=== PATIENT | female | born 1940 | race Caucasian/White ===

== ENCOUNTER 2022-06-01 04:04 | Emergency (ER) | payer MEDICARE, SELFPAY ==
--- NOTE | ~2022-06-01 | XR_ITS ---
Portable chest x-ray Comparison: None Clinical History: Cough, shortness of breath Findings: Lungs are clear, without focal consolidation or pleural effusion. Probable calcified lymph node projecting at the right infrahilar region. Cardiomediastinal silhouette is unremarkable. Bones and soft tissues are unremarkable. Impression: Clear lungs. Probable calcified lymph node at the right infrahilar region. Reviewed, dictated and finalized at location . 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 Probable calcified lymph node at the right infrahilar region.
[2022-06-01 04:07] VITALS: BP 127/74; PULSE 115; RESP 20; TEMP 38.2; O2SAT 97
[2022-06-01 05:04] LABS: Influenza A QL RT-PCR Positive (Negative); Influenza B QL RT-PCR Negative (Negative); RSV RNA, RT-PCR Negative (Negative); SARS-CoV-2 RNA PCR Negative
[2022-06-01 06:50] VITALS: BP 157/65; PULSE 91; RESP 22; O2SAT 97
[2022-06-01] MEDS: SODIUM CHLORIDE 0.9% IV 1,000 ML 999 ML IV CONT (08:19)
[2022-06-01 08:21] VITALS: BP 139/96; PULSE 77; RESP 18; O2SAT 97
[2022-06-01] MEDS: KETOROLAC 15 MG/ML VIAL (*BKC) IV PUSH (08:21)
--- NOTE | 2022-06-01 08:42 | ED.URI ---
HPI - URI/Sore Throat General Chief Complaint: Upper Respiratory Infection Stated Complaint: body aches and chills Time Seen by Provider: 06/01/22 06:58 History of Present Illness HPI Narrative: Patient is a 81-year-old female who presents to the ER with flu symptoms. She has fevers and chills as well as body aches especially in her arms and legs. She also has some sinus congestion. She was exposed to her grandchildren who had an upper respiratory infection over the weekend. Related Data Allergies Allergy/AdvReac Type Severity Reaction Status Date / Time azithromycin Allergy Unknown Skin Verified 06/01/22 06:50 Reaction cephalexin Allergy Unknown Skin Verified 06/01/22 06:50 Reaction Cephalosporins Allergy Unknown Unknown Verified 06/01/22 06:50 codeine Allergy Unknown unknown Verified 06/01/22 06:50 fluticasone Allergy Unknown Skin Verified 06/01/22 06:50 Reaction Penicillins Allergy Unknown Skin Verified 06/01/22 06:50 Reaction Review of Systems Constitutional: Constitutional: Reports chills, Reports fatigue and Reports fever(s) ENT: Reports nasal congestion and Reports sore throat Cardiovascular: Cardiovascular: Reports no additional cardiovascular complaints Respiratory: Respiratory: Reports cough, Denies dyspnea and Denies wheezing PMFSH Past Medical History Medical History Adhesive capsulitis of right shoulder Obesity (BMI 30.0-34.9) Family History Family History Father Diabetes mellitus, Onset Age: 89 Hypertension, Onset Age: 89 Cerebrovascular accident, Onset Age: 89 Grandparent Family history of cardiovascular disease Sibling Family history of malignant neoplasm of urinary bladder Social History Social History Smoking status: Never smoker Alcohol intake: never Exam Narrative: GENERAL: Well-appearing, well-nourished, and in no acute distress. HEAD: Normocephalic, atraumatic. CHEST: Clear to auscultation. No respiratory distress. HEART: Regular rate and rhythm. Normal peripheral pulses. ABDOMEN: Soft, nontender, nondistended. EXTREMITIES: Normal range of motion. No edema. NEURO: Alert and oriented x3. PSYCH: Normal mood and affect. Course Course Emergency Course: Patient informed of results. Hydrated and given Toradol. Discharged with Tamiflu as she is in the early portion of her disease. She did not get the flu shot because she has adverse reaction to it Vital Signs Vital signs: Vital Signs Temperature 100.8 F H 06/01/22 04:07 Pulse Rate 115 H 06/01/22 04:07 Respiratory Rate 20 06/01/22 04:07 Blood Pressure 127/74 06/01/22 04:07 Pulse Oximetry 97 06/01/22 04:07 Oxygen Delivery Room Air 06/01/22 04:07 Temperature 100.8 F H 06/01/22 04:07 Pulse Rate 77 06/01/22 08:21 Respiratory Rate 18 06/01/22 08:21 Blood Pressure 139/96 H 06/01/22 08:21 Pulse Oximetry 97 06/01/22 08:21 Oxygen Delivery Room Air 06/01/22 06:47 MDM - URI/Sore Throat Lab Data Labs: Lab Results 06/01/22 Range/Units 04:13 Influenza A (RT-PCR) Positive (Negative) Influenza B (RT-PCR) Negative (Negative) RSV (RT-PCR) Negative (Negative) SARS-CoV-2 RNA (RT-PCR) Negative Discharge Plan Discharge Clinical Impression: Influenza Patient Disposition: Home, Self-Care Condition: Stable Instructions: Influenza (ED) Additional Instructions: Return the ER if you cannot breathe, you cannot swallow, you lose consciousness, you have additional concerns. Take Tylenol or ibuprofen as needed for body aches and fever. Prescriptions: New oseltamivir 75 mg capsule 75 mg PO BID Qty: 10 0RF No Action triamcinolone acetonide 40 mg/mL suspension 40 mg intra-articular ONCE Qty: 1 0RF lidocaine (PF) 10 mg/mL (1 %) solution
[2022-06-01 09:24] VITALS: BP 148/63; PULSE 89; RESP 18; O2SAT 94
== END 2022-06-01 09:25 | disposition home or self-care (01) ==
PROVIDERS: Emergency Medicine; Emergency Provider Emergency Medicine; PCP Family Medicine
DX: J10.1 Influenza due to other identified influenza virus with other respiratory manifestations (principal); Z20.822 Contact with and (suspected) exposure to COVID-19; E66.9 Obesity, unspecified; Z68.30 Body mass index [BMI] 30.0-30.9, adult
CPT/HCPCS: 71045; 87637; 96361; 96374; 99284; J1885; J7030

== ENCOUNTER 2025-05-11 21:32 | Inpatient (IN) | payer MEDICARE, SELFPAY ==
--- NOTE | ~2025-05-11 | XR_ITS ---
Examination: XR chest 1V portable Clinical History: sepsis Comparison: 06/01/2022 Technique: Portable AP Findings: Heart size mildly enlarged. Lungs clear. No acute bony abnormality. IMPRESSION: 1. No acute cardiopulmonary findings given portable technique. Consider PA and lateral films with deep inspiration. Reviewed, dictated and finalized at location R. REL PULLER
--- NOTE | ~2025-05-11 | US_ITS ---
RIGHT LOWER EXTREMITY VENOUS DUPLEX Clinical History: Edema COMPARISON: None TECHNIQUE: Grayscale, color, duplex/spectral Doppler sonography right leg FINDINGS: Right leg common femoral, femoral, popliteal, and calf veins compressible and color Doppler patent. Normal augmentation with distal compression. No internal echoes. Large fluid collection along medial knee. IMPRESSION: 1. No right leg DVT. 2. Large fluid collection along medial knee. Reviewed, dictated and finalized at location R. TRY CULLER
[2025-05-11 21:44] VITALS: BP 153/86; PULSE 111; RESP 17; TEMP 38.8; O2SAT 96
--- NOTE | 2025-05-11 21:44 | ECG_ITS ---
Test Date: 2025-05-11 22:00:10 Measurements Intervals Woody Rate: 113 P: 38 HI: 170 QRS: -30 QRSD: 94 T: 61 QT: 322 QTc: 443 Interpretive Statements SINUS TACHYCARDIA DELAYED PRECORDIAL R/S TRANSITION LEFT VENTRICULAR HYPERTROPHY AND ST-T CHANGE ABNORMAL ECG No previous ECG available for comparison Electronically Signed On 05-12-2025 09:15:28 [employer] by Fransico Lyle D.O.
--- NOTE | 2025-05-11 21:57 | ED.FEVER ---
HPI - Fever General Chief Complaint: Fever Stated Complaint: fever Time Seen by Provider: 05/11/25 21:51 History of Present Illness HPI Narrative: 84-year-old female presenting to the emergency department today with concerns of nonproductive cough, rash and redness/ swelling in her right leg, fever and elevated heart rate. Patient was otherwise in her normal state of health with the for last few days approximately a week she has been having issues with her right leg where her dog scratch during left an open wound. She was treated with topical antibiotics but not any oral antibiotics. He then started developing some difficulty breathing and fever today. Denies any recent injuries or illnesses otherwise. She did have a temperature at home and in route by EMS noted that she was having bouts of ventricular bigeminy with palpable heart rates in the 50s but blood pressure remained stable in the 150s. Denies any cardiac history. Patient states she is very dry and dehydrated asking for water. Endorses a fever. No chest pain, nausea, vomiting, abdominal pain, back pain. Was otherwise in her normal state of health but does have sick contacts as her family works in healthcare and she has been around sick children in addition to the dog scratch in her right leg. Related Data Home Medications ?Medication ?Instructions ?Recorded ?Confirmed ?Last Taken ?Type gabapentin 300 mg capsule 300 mg PO TID PRN pain 05/12/25 05/12/25 Unknown History Allergies Allergy/AdvReac Type Severity Reaction Status Date / Time azithromycin Allergy Unknown Skin Verified 05/12/25 00:38 Reaction cephalexin Allergy Unknown Skin Verified 05/12/25 00:38 Reaction Cephalosporins Allergy Unknown Unknown Verified 05/12/25 00:38 codeine Allergy Unknown unknown Verified 05/12/25 00:38 fluticasone Allergy Unknown Skin Verified 05/12/25 00:38 Reaction Penicillins Allergy Unknown Skin Verified 05/12/25 00:38 Reaction Review of Systems Review of Systems: as reviewed above in HPI All systems reviewed & are unremarkable except as noted in HPI and below PMFSH Past Medical History Medical History Obesity (BMI 30.0-34.9) Adhesive capsulitis of right shoulder Family History Family History Father Diabetes mellitus, Onset Age: 89 Hypertension, Onset Age: 89 Cerebrovascular accident, Onset Age: 89 Grandparent Family history of cardiovascular disease Sibling Family history of malignant neoplasm of urinary bladder Social History Social History Smoking status: Never smoker Alcohol intake: never Substance use: never Substance use type: does not use Lack of Transportation: No Lack of Food: Never True Current Housing: I Have Housing Concerned About Future Housing: No Difficulty Paying Gas/Electric Bills: No Difficulty Paying for Meds: No Currently Unemployed: No Education: High School Diploma/GED Difficulty w/ Childcare or Family Care: No Spiritual care concerns: No Exam Narrative: GENERAL: ill-appearing but not in any distress. Awake alert answering all questions appropriately. Coughing infrequently. HEAD: [Normocephalic, atraumatic.] EYES: [PERRLA and EOMI.] ENT: Nares clear, no rhinorrhea or epistaxis. Mucous membranes moist. Posterior oropharynx with some redness but no exudates or pooling secretions. Uvula midline. NECK: Supple. CHEST: [Clear to auscultation. No respiratory distress.] Some petechial rash over the anterior chest wall but no tenderness to palpation or purulent drainage. No weeping fluid. HEART: [Regular rate and rhythm]. No murmur heard. [Normal peripheral pulses.] ABDOMEN: [Soft, nondistended], [nontender], [No rigidity or guarding] EXTREMITIES: Normal range of motion. Right lower extremity with cellulitis on the right lateral aspect of the lower leg noncircumferential. No purulent drainage or weeping. Pitting edema with blanching erythema. Tender to palpation. SKIN: Rashes as described above. Warm and dry extremities NEURO: [No focal deficits]. Alert and oriented [x3.] PSYCH: [Normal mood and affect.] Course Vital Signs Vital signs: Vital Signs Temperature 38.8 C H 05/11/25 21:44 Pulse Rate 111 H 05/11/25 21:44 Respiratory Rate 17 05/11/25 21:44 Blood Pressure 153/86 H 05/11/25 21:44 Pulse Oximetry 96 05/11/25 21:44 Oxygen Delivery Room Air 05/11/25 21:44 Temperature 36.6 C 05/12/25 04:04 Pulse Rate 84 05/12/25 04:04 Respiratory Rate 16 05/12/25 04:04 Blood Pressure 147/67 H 05/12/25 04:04 Pulse Oximetry 97 05/12/25 04:04 Oxygen Delivery Room Air 05/12/25 01:00 MDM MDM Narrative Medical decision making narrative: 84-year-old female presenting to the emergency department today with concerns of nonproductive cough, rash and redness/ swelling in her right leg, fever and elevated heart rate. Patient was otherwise in her normal state of health with the for last few days approximately a week she has been having issues with her right leg where her dog scratch during left an open wound. She was treated with topical antibiotics but not any oral antibiotics. He then started developing some difficulty breathing and fever today. Denies any recent injuries or illnesses otherwise. She did have a temperature at home and in route by EMS noted that she was having bouts of ventricular bigeminy with palpable heart rates in the 50s but blood pressure remained stable in the 150s. Denies any cardiac history. Patient states she is very dry and dehydrated asking for water. Endorses a fever. No chest pain, nausea, vomiting, abdominal pain, back pain. Was otherwise in her normal state of health but does have sick contacts as her family works in healthcare and she has been around sick children in addition to the dog scratch in her right leg. patient is meeting sepsis criteria with fever, tachycardia and source of infection likely right lower extremity leg cellulitis versus upper respiratory tract infection/ pneumonia /strep. She has been around sick contacts and did have an injury to her right leg with overt cellulitis evident on exam today. She also has a petechial rash on her chest likely related to fever today. Her cough and shortness of breath could be pneumonia or COVID, flu, RSV, other viral infection given her sick contacts recently. Given her age and risk factors as well as concern for sepsis and sepsis orders were initiated and she was given 30 cc/kg bolus given her tachycardia and fever. She is given Tylenol. Antibiotics empirically started including doxycycline and Flagyl as she is allergic to most other antibiotics and will have to cover for skin and soft tissue infections as well as anaerobic coverage. Viral panel swabs and strep ordered. Chest x-ray obtained. Laboratory studies pending. Discussed with patient family that will patient will be admitted upon completion of workup for continued care. Reported by EMS that patient had episodes of ventricular bigeminy. Not evident on EKG or monitor at this time she remains sinus tachycardia with normal QRS and intervals. Rate of 113 beats per minute. Will place on monitor and observe. Heart rate came down with fluids. Chest x-ray shows no acute consolidation or pneumonia. Urinalysis largely unremarkable. Laboratory studies showed leukocytosis. Fever and tachycardia resolved with fluids and Tylenol. Patient will be admitted for IV antibiotics and sepsis likely secondary to cellulitis right lower extremity secondary to dog scratch/injury. Spoke to the hospitalist service were accepted the patient to a telemetry monitored bed. Patient's family made aware of the plan. Differential Diagnosis Differential Diagnosis: Sepsis, fluid, cellulitis, pneumonia, UTI Lab Data MDM Lab Attestation statement: I personally reviewed the patient's lab results. 05/11/25 21:53 05/11/25 21:53 Labs: Lab Results 05/11/25 05/11/25 Range/Units 21:53 22:01 WBC 12.0 H (4.5-10.0) K/mm3 RBC 5.53 H (4.2-5.4) M/mm3 Hgb 16.9 H (12.0-15.0) g/dL Hct 49.5 H (37.0-47.0) % MCV 89.5 (80-100) fl MCH 30.6 (26-34) pg MCHC 34.1 (32-36) g/dl RDW 13.2 (11.5-14.5) % Plt Count 237 (150-375) k/mm3 MPV 8.9 (7.4-10.4) fl Immature Gran % (Auto) 0.3 (0-0.5) % Neut % (Auto) 82.7 H (45.5-73.1) % Lymph % (Auto) 8.1 L (18.3-44.2) % [place] % (Auto) 6.7 (2.6-8.5) % Eos % (Auto) 1.7 (0-4.4) % Baso % (Auto) 0.5 (0.2-1.2) % Lymph # (Auto) 0.98 (0.9-3.2) K/mm3 [place] # (Auto) 0.8 H (0.1-0.6) K/mm3 Eos # (Auto) 0.2 (0-0.3) K/mm3 Baso # (Auto) 0.1 (0.0-0.1) K/mm3 Abs Immat Gran (auto) 0.04 H (0.00-0.031) K/mm3 Absolute Neuts (auto) 10.0 H (1.3-6.7) K/mm3 Absolute Nucleated RBC 0.000 (0.0-0.012) K/mm3 Nucleated RBC % 0.0 (0.0-0.2) % PT 13.1 (11.1-14.7) Seconds INR 1.0 APTT 27.9 (22.3-36.8) Seconds Sodium 138 (137-145) mmol/L Potassium 3.8 (3.4-5.0) mmol/L Chloride 105 (98-107) mmol/L Carbon Dioxide 24 (22-30) mmol/L Anion Gap 9 (4-12) mmol/L BUN 14 (7-17) mg/dL Creatinine 0.81 (0.7-1.0) mg/dL Estim Creat Clear Calc 49 ml/min Estimated GFR > 60 (59 - ) Glucose 114 H (65-110) mg/dL Lactic Acid 1.3 (0.7-2.0) mmol/L Calcium 9.3 (8.4-10.2) mg/dL Total Bilirubin 0.9 (0.2-1.3) mg/dL AST 27 (14-36) U/L ALT 15 (6-35) U/L Alkaline Phosphatase 85 (38-126) U/L C-Reactive Protein 1.4 H (<1.0) mg/dL Total Protein 8.2 (6.3-8.2) g/dL Albumin 4.7 (3.5-5.1) g/dL Urine Color Yellow (Yellow) Urine Appearance Clear (Clear) Urine pH 7.0 (5.0-9.0) Ur Specific [place] 1.013 (1.001-1.035) Urine Protein Negative (Negative) mg/dL Urine Glucose (UA) Negative (Negative) mg/dL Urine Ketones 1+ H (Negative) mg/dL Ur Blood (Man) Negative (Negative) Urine Nitrate Negative (Negative) Urine Bilirubin Negative (Negative) Urine Urobilinogen 1.0 (<2.0) mg/dL Leukocyte Esterase Rfl Negative (Negative) ELIZABETH/UL Influenza A (RT-PCR) Negative (Negative) Influenza B (RT-PCR) Negative (Negative) RSV (RT-PCR) Negative (Negative) SARS-CoV-2 RNA (RT-PCR) Negative (Negative) Group A Strep (PCR) Not detected (Negative) Critical Care Time Critical Care Time Critical Care Time: Yes Time Type: Intermittent Initial evaluation, discuss w/ involved parties, attempting to gather old records: 10 minutes Documenting medical record: 15 minutes Review of results (EKG's, labs, imaging): 5 minutes Serial repeat bedside evaluation: 10 minutes Discussing case with multiple memebers of the care team and consultants: 5 minutes Total Critical Care Time: 45 Discharge Plan Discharge Clinical Impression: Sepsis, Cellulitis Patient Disposition: Still a Patient Condition: Stable
[2025-05-11 22:00] VITALS: BP 163/94; PULSE 114; RESP 13; O2SAT 93
[2025-05-11 22:02] LABS: Add Urine Microscopic? NO; Appearance Urine Clear (Clear); Glucose Urine UA Negative (Negative); Hematocrit 49.5 % (37.0-47.0); Hemoglobin 16.9 g/dL (12.0-15.0); Immature Granulocyte Percent A 0.3 % (0-0.5); Leukocyte Esterase Ur Negative LEU/UL (Negative); Lymphocytes Absolute Auto 0.98 K/mm3 (0.9-3.2); Mean Corpuscular HGB Conc 34.1 g/dl (32-36); Mean Corpuscular Hemoglobin 30.6 pg (26-34); Mean Corpuscular Volume 89.5 fl (80-100); Nitrate Urine Negative (Negative); Nucleated Red Blood Cells Absolute Auto 0.000 K/mm3 (0.0-0.012); Nucleated Red Blood Cells Perc 0.0 % (0.0-0.2); Platelet Count Result 237 k/mm3 (150-375); Red Blood Count 5.53 M/mm3 (4.2-5.4); Specific Grav Ur 1.013 (1.001-1.035); White Blood Count 12.0 K/mm3 (4.5-10.0)
[2025-05-11] MEDS: metroNIDAZOLE 500 MG/ISO 100ML 500 MG/100 ML BAG 100 MG IVPB (22:02)
[2025-05-11] MEDS: STAT BOLUS COMMUNICATION ORDER 2487 ML IV CONT (22:03)
[2025-05-11] MEDS: ACETAMINOPHEN 500 MG TABLET 1000 MG PO (22:03)
[2025-05-11 22:13] LABS: INR 1.0; Partial Thromboplastin Time 27.9 Seconds (22.3-36.8); Prothrombin Time 13.1 Seconds (11.1-14.7)
[2025-05-11 22:26] LABS: Alanine Aminotransferase 15 U/L (6-35); Albumin Level 4.7 g/dL (3.5-5.1); Alkaline Phosphatase 85 U/L (38-126); Anion Gap 9 mmol/L (4-12); Aspartate Amino Transferase 27 U/L (14-36); Bilirubin,Total 0.9 mg/dL (0.2-1.3); Blood Urea Nitrogen 14 mg/dL (7-17); CRP 1.4 mg/dL (<1.0); Calcium 9.3 mg/dL (8.4-10.2); Carbon Dioxide 24 mmol/L (22-30); Chloride 105 mmol/L (98-107); Estimated CRCL calculation 49 ml/min; Estimated Glomerular Filt Rate > 60; Glucose 114 mg/dL (65-110); Potassium 3.8 mmol/L (3.4-5.0); Sodium 138 mmol/L (137-145); Total Protein 8.2 g/dL (6.3-8.2)
[2025-05-11 22:35] LABS: Strep Group A RT-PCR NOT DETECTED (Negative)
[2025-05-11 22:46] LABS: Influenza A QL RT-PCR Negative (Negative); Influenza B QL RT-PCR Negative (Negative); RSV RNA, RT-PCR Negative (Negative); SARS-CoV-2 RNA PCR Negative (Negative)
[2025-05-11 23:02] VITALS: BP 117/47; PULSE 101; RESP 21; TEMP 37; O2SAT 100
[2025-05-11] MEDS: DOXYCYCLINE IV 100 MG in SODIUM CHLORIDE 0.9% IV 100 ML IVPB (23:02)
--- NOTE | 2025-05-11 23:46 | WPCEDHO ---
ED Hand Off Checklist All vitals saved:y IV Site documented:y All med administrations documented: yes except maintenance fluids Triage Note Triage Note via ems from home due to fevers 05/11/25 21:44 and difficulty breathing and flu like sx.. pt right lower leg is bright red. pt states approx 1 wk her dog scratched her. Pt oral temp is 101.8F Allergies azithromycin Allergy (Unknown, Verified 05/11/25 21:48) Skin Reaction cephalexin Allergy (Unknown, Verified 05/11/25 21:48) Skin Reaction Cephalosporins Allergy (Unknown, Verified 05/11/25 21:48) Unknown KEFLEX PER ER ADMISSION ORDERS 06/12/04 codeine Allergy (Unknown, Verified 05/11/25 21:48) unknown PER ER ORDER fluticasone Allergy (Unknown, Verified 05/11/25 21:48) Skin Reaction Penicillins Allergy (Unknown, Verified 05/11/25 21:48) Skin Reaction Family History (Last Reviewed 05/11/25 @ 22:00 by Tono Pfeiffer MD) Father Diabetes mellitus Hypertension Cerebrovascular accident Grandparent Family history of cardiovascular disease Sibling Family history of malignant neoplasm of urinary bladder Administered/Completed Medications Discontinued Medications Acetaminophen (Acetaminophen 500 Mg Tablet) 1,000 mg PO ONCE STA Stop: 05/11/25 21:52 Last Admin: 05/11/25 22:03 Dose: 1,000 mg Documented By: JESSICA Lactated Ringer's (Lr - Lactated Ringers Iv) 1,000 mls @ 999 mls/hr IV CONT .Q1H1M STA Stop: 05/11/25 22:44 Last Admin: 05/11/25 22:02 Dose: Not Given Documented By: JESSICA Non-Admin Reason: Order Discontinued Doxycycline Hyclate 100 mg/ (Sodium Chloride) 100 mls @ 100 mls/hr IVPB ONCE ONE Stop: 05/11/25 22:44 Last Admin: 05/11/25 23:02 Dose: 100 mls/hr Documented By: JESSICA Metronidazole (Flagyl 500 Mg/Iso Soln 100 Ml) 500 mg in 100 mls @ 100 mls/hr IVPB ONCE STA Stop: 05/11/25 22:44 Last Infusion: 05/11/25 23:06 Dose: Infused Documented By: Admin: 05/11/25 22:02 Dose: 100 mls/hr Documented By: JESSICA Lactated Ringer's (Stat Bolus Communication Order) 2,487 ml 30 ml/kg (2487 ml) IV CONT ONCE STA Stop: 05/11/25 22:00 Last Admin: 05/11/25 22:03 Dose: 2,487 ml Documented By: JESSICA Interventions/Assessments IV / Saline Lock, Insert Start: 05/11/25 21:22 Freq: Status: Active Protocol: Document 05/11/25 22:02 JESSICA (Rec: 05/11/25 22:02 JESSICA [id number]) IV Assessment Peripheral Access Left Wrist IV Catheter Access Initiated IV Insertion Date 05/11/25 IV Insertion Time 22:02 Catheter Gauge 20 IV Insertion 1 Attempts Ultrasound Used for No Placement IV Site Assessment WNL IV Care and WNL Maintenance Last Vital Signs Temperature 98.6 F 05/11/25 23:02 Pulse Rate 101 H 05/11/25 23:02 Respiratory Rate 21 H 05/11/25 23:02 Pulse Oximetry 100 05/11/25 23:02 Blood Pressure 117/47 L 05/11/25 23:02 Blood Pressure Mean 70 05/11/25 23:02 Blood Pressure Position Sitting 05/11/25 23:02 Oxygen Delivery Room Air 05/11/25 21:44 Weight 82.9 kg 05/11/25 21:44 Last Result - Abnormals Only WBC 12.0 K/mm3 (4.5-10.0) H 05/11/25 21:53 RBC 5.53 M/mm3 (4.2-5.4) H 05/11/25 21:53 Hgb 16.9 g/dL (12.0-15.0) H 05/11/25 21:53 Hct 49.5 % (37.0-47.0) H 05/11/25 21:53 Neut % (Auto) 82.7 % (45.5-73.1) H 05/11/25 21:53 Lymph % (Auto) 8.1 % (18.3-44.2) L 05/11/25 21:53 [place] # (Auto) 0.8 K/mm3 (0.1-0.6) H 05/11/25 21:53 Abs Immat Gran (auto) 0.04 K/mm3 (0.00-0.031) H 05/11/25 21:53 Absolute Neuts (auto) 10.0 K/mm3 (1.3-6.7) H 05/11/25 21:53 Glucose 114 mg/dL (65-110) H 05/11/25 21:53 C-Reactive Protein 1.4 mg/dL (<1.0) H 05/11/25 21:53 Urine Ketones 1+ mg/dL (Negative) H 05/11/25 21:53 Most Recent Suicide Severity Rating Suicide Severity Rating NO RISK INDICATED 05/11/25 21:44
[2025-05-12] VITALS (11 sets, daily range): BP systolic 117–147; BP diastolic 43–67; PULSE 53–117; RESP 16–18; TEMP 36.6–37.3; O2SAT 96–97; BMI 31.6
--- NOTE | 2025-05-12 00:25 | ADMGEN ---
This patient, Kayley Gutierrez, was admitted to Medical Room 348-01. Patient/family oriented to hospital policies and general routines including ID bracelet, bed and alarms, visiting hours, pain management, procedures, bathroom and other care routines, personal items, smoking policy, room service/diet, and visiting hours. Information on how to activate the Rapid Response Team has been discussed. Patient/Family are encouraged to report perceived risks to care and to ask questions if they do not understand what they are told or what they should do.
[2025-05-12] MEDS: LACTATED RINGERS 1,000 ML 125 ML IV CONT ×2 (00:59→11:26)
[2025-05-12] MEDS: PHENOL/SOD PHENO SPRAY CHERRY (*BKC) 1 SPRAY MUCOUS MEM (03:19)
--- NOTE | 2025-05-12 04:46 | PM.IMHP2 ---
H&P: HPI History of Present Illness Date/Time: 05/12/25 04:46 Chief Complaint: Fever Narrative: This is an 84-year-old female patient who came to the Emergency Room with a nonproductive cough, fever, rash to her chest and right leg with redness and swelling to her right lower extremity. Approximately 1 week ago her dog scratched her lower extremity and she was using topical antibiotic at the time. Otherwise she is typically healthy. The patient activated the EMS and while in route to the hospital the patient was noted to have several bouts of ventricular bigeminy with palpable heart rate in the 50s. The patient stated that from time to time she has had an irregular heartbeat. Her T-max was 101.8?. Her white count was noted to be 12.0. Her C reactive protein is 1.4. She was negative for viral panel. Group a strep was negative as well. The patient was given 3 L boluses IV fluids, doxycycline, and Flagyl in the emergency room. Chest x-ray was performed but not read by radiologist at this time.. She has multiple allergies. She was admitted to observation status on the date of service of 05/12/2025. Review of Systems Constitutional: Constitutional: Reports as per HPI and Reports no additional constitutional complaints Eyes: Eyes: Reports as per HPI and Reports no additional eye complaints ENT: Reports system reviewed and no additional complaints, except as documented and Reports Normal hearing present Cardiovascular: Cardiovascular: Reports no additional cardiovascular complaints Respiratory: Respiratory: Reports as per HPI and Reports no additional respiratory complaints Gastrointestinal: Gastrointestinal: Reports as per HPI and Reports no additional gastrointestinal complaints Genitourinary: Genitourinary: Reports no additional female genitourinary complaints Musculoskeletal: Musculoskeletal: Reports no additional musculoskeletal complaints Integumentary/Breasts: Skin/Breast: Reports system reviewed and no additional complaints, except as docu Neurologic: Reports system reviewed and no additional complaints, except as documented and Reports Normal hearing present Psychiatric: Psychiatric: Reports no additional psychiatric complaints and Reports as per HPI Hematologic/Lymphatic: Hematologic/Lymphatic: Reports no additional hematologic/lymphatic complaints Allergic/Immunologic: Allergic/Immunologic: Reports no additional allergic/immunologic complaints [facility] Past Medical History Medical History (Updated 05/12/25 @ 06:22 by Shanika Campbell APRN) Animal scratch Neuropathy Obesity (BMI 30.0-34.9) Adhesive capsulitis of right shoulder Surgical History Surgical History (Updated 05/12/25 @ 06:05 by Shanika Campbell APRN) H/O tubal ligation Hx of cholecystectomy Family History Family History Father Diabetes mellitus, Onset Age: 89 Hypertension, Onset Age: 89 Cerebrovascular accident, Onset Age: 89 Grandparent Family history of cardiovascular disease Sibling Family history of malignant neoplasm of urinary bladder Social History Social History (Updated 05/12/25 @ 06:06 by Shanika Campbell APRN) Social History: The patient is . She has 2 children. She is retired. She lives home alone with her dog. Code status: Full code Smoking status: Never smoker Alcohol intake: never Substance use: never Substance use type: does not use Lack of Transportation: No Lack of Food: Never True Current Housing: I Have Housing Concerned About Future Housing: No Difficulty Paying Gas/Electric Bills: No Difficulty Paying for Meds: No Currently Unemployed: No Education: High School Diploma/GED Difficulty w/ Childcare or Family Care: No Spiritual care concerns: No Meds Home Medications and Allergies Home Medications ?Medication ?Instructions ?Recorded ?Confirmed ?Type triamcinolone acetonide 0.1 % 1 applic topical QID #80 grams 05/10/25 05/12/25 Rx topical cream gabapentin 300 mg capsule 300 mg PO TID PRN pain 05/12/25 05/12/25 History Allergies Allergy/AdvReac Type Severity Reaction Status Date / Time azithromycin Allergy Unknown Skin Verified 05/12/25 00:38 Reaction cephalexin Allergy Unknown Skin Verified 05/12/25 00:38 Reaction Cephalosporins Allergy Unknown Unknown Verified 05/12/25 00:38 codeine Allergy Unknown unknown Verified 05/12/25 00:38 fluticasone Allergy Unknown Skin Verified 05/12/25 00:38 Reaction Penicillins Allergy Unknown Skin Verified 05/12/25 00:38 Reaction Vital Signs Vital Signs - 24 hr 05/11/25 21:44 05/11/25 22:00 05/11/25 23:02 Temperature 101.8 F H 98.6 F Pulse Rate 111 H 114 H 101 H Respiratory Rate 17 13 21 H Blood Pressure 153/86 H 163/94 H 117/47 L Pulse Oximetry 96 93 100 Oxygen Delivery Room Air 05/12/25 00:43 05/12/25 01:00 05/12/25 04:04 Temperature 99.1 F 97.8 F Pulse Rate 53 L 84 Respiratory Rate 18 16 Blood Pressure 135/51 L 147/67 H Pulse Oximetry 96 96 97 Oxygen Delivery Room Air Exam Const: General: cooperative, comfortable, no acute distress, well developed, awake, Physically active, average body habitus and well nourished Nutritional Appearance: average body habitus and well nourished Orientation/consciousness: oriented to person, oriented to place, oriented to time and patient oriented x3 Limitations: no limitations HENMT: Head: normal to inspection, No palpable skull fracture present, normocephalic, atraumatic and abrasion Ears: hearing grossly normal bilaterally Eyes: General: appearance normal, both eyes and all related structures Alignment and Position: alignment normal Periorbital: periorbital findings normal Eyelids: eyelids normal Neck: Neck: normal visual inspection and full ROM Chest: Chest palpation & inspection: normal inspection of the chest Resp: Effort & Inspection: normal respiratory effort Auscultation: clear to auscultation bilaterally Cardio: Palpation: normal PMI Rate: regular rate Rhythm: abnormal rhythm Heart sounds: S1 normal heart sound present and S2 normal heart sound present Peripheral pulses: Peripheral pulses 2+ throughout Other: Occasional skipped beat GI: Inspection: normal to inspection Percussion: Yes normal to percussion Auscultation: normal bowel sounds Rectal Exam: deferred : General: Yes no CVA tenderness Back/Spine/Pelvis: Back: no CVA tenderness Cervical Spine: cervical ROM normal Skin: Rashes: rashes noted (Multiple pruritic red papules noted to chest and upper right leg. ) Other: erythema Noted from right ankle to right mid leg Neuro: General: oriented to person, oriented to place, oriented to time and patient oriented x3 Cranial nerves: Yes Equal, round and reactive pupils present and Yes Normal hearing present Cognition (Neuro): normal cognition Speech: normal speech Motor exam (neuro): 5/5 motor strength present throughout Sensory Exam: normal sensation Extrem: General: normal to inspection Right upper extremity: normal to inspection and shoulder/upper arm Left upper extremity: normal to inspection and shoulder/upper arm Left lower extremity: normal to inspection Other: The patient has a papular rash to her chest and right upper extremity. She had also has erythema from the ankle to the mid foreleg with 2+ pitting edema. Right lower extremities warm to touch. Psych: Appearance: grossly normal Mental Status: mental status grossly normal Speech and movement: Normal speech and movement present Affect: normal affect Attitude: cooperative Thought process: Normal thought process present Thought content: Yes Normal thought content present Insight: Good insight present (Psych) Judgement: Good judgement present (Psych) Results Labs Labs: Short CBC 05/11/25 Range/Units 21:53 WBC 12.0 H (4.5-10.0) K/mm3 Hgb 16.9 H (12.0-15.0) g/dL Hct 49.5 H (37.0-47.0) % Plt Count 237 (150-375) k/mm3 BMP 05/11/25 21:53 Sodium 138 Potassium 3.8 Chloride 105 Carbon Dioxide 24 BUN 14 Creatinine 0.81 Glucose 114 H Calcium 9.3 Liver Function 05/11/25 Range/Units 21:53 Total Bilirubin 0.9 (0.2-1.3) mg/dL AST 27 (14-36) U/L ALT 15 (6-35) U/L Alkaline Phosphatase 85 (38-126) U/L Albumin 4.7 (3.5-5.1) g/dL Urine 05/11/25 Range/Units 21:53 Urine Color Yellow (Yellow) Urine Appearance Clear (Clear) Urine pH 7.0 (5.0-9.0) Ur Specific [place] 1.013 (1.001-1.035) Urine Protein Negative (Negative) mg/dL Urine Glucose (UA) Negative (Negative) mg/dL ECG Interpretation: 113 FL 170 QRSd 94 QT 322 QTc 443 --[place]-- P 38 QRS -30 T 61 SINUS TACHYCARDIA BORDERLINE LEFT AXIS DEVIATION [QRS AXIS < -20] LEFT VENTRICULAR HYPERTROPHY AND ST-T CHANGE [VOLTAGE CRITERIA PLUS ST/T ABNORMALITY] No previous ECG available for comparison Imaging Chest x-ray: Radiologist's impression: See radiology read Quality VTE Prophylaxis VTE prophylaxis: mechanical ordered Assessment and Plan Assessment and plan (1) Sepsis: Code(s): A41.9 - Sepsis, unspecified organism Status: Acute Assessment and Plan: -the patient had tachycardia with multiple bigeminy be and her heart rate improved with IV fluids. -she was febrile I will with T-max of 101.8. -blood cultures are pending. -she possibly have obtained pasteurella multocida from the dog scratch. Therefore she was started on doxycycline. She has multiple allergies. Vancomycin would be resistant to this microorganism. -may consider Infectious Disease consult. -her white count was elevated to 12.0 -she also was tachycardic. Her heart rate improved with IV fluids. Continue with maintenance IV fluids. (2) Neuropathy: Code(s): G62.9 - Polyneuropathy, unspecified Status: Acute Assessment and Plan: -continue with gabapentin
[2025-05-12] MEDS: VANCOMYCIN 2,000 MG/NS 500 ML 2,000 MG/500 ML BAG 250 MG IVPB (06:19)
[2025-05-12] MEDS: TRIAMCINOLONE ACET 0.1% CREAM 15 GM TUBE 1 APPLIC TOPICAL (06:30)
[2025-05-12 06:41] LABS: Hematocrit 42.8 % (37.0-47.0); Hemoglobin 14.3 g/dL (12.0-15.0); Mean Corpuscular HGB Conc 33.4 g/dl (32-36); Mean Corpuscular Hemoglobin 30.2 pg (26-34); Mean Corpuscular Volume 90.5 fl (80-100); Platelet Count Result 222 k/mm3 (150-375); Red Blood Count 4.73 M/mm3 (4.2-5.4); White Blood Count 12.0 K/mm3 (4.5-10.0)
--- NOTE | 2025-05-12 07:03 | PM.IMPN2 ---
Assessment and Plan Assessment and Plan (1) Sepsis: Code(s): A41.9 - Sepsis, unspecified organism Status: Acute Assessment and Plan: -the patient had tachycardia with multiple bigeminy be and her heart rate improved with IV fluids. -she was febrile with a T-max of 101.8, WDL after x1 dose of acetaminophen -BC pending -she possibly have obtained pasteurella multocida from the dog scratch. Therefore she was started on doxycycline. She has multiple allergies. Vancomycin would be resistant to this microorganism. -ID consulted -her white count is elevated to 12.0, continue to trend -she also was tachycardic. Her heart rate improved with IV fluids. Continue with maintenance IV fluids. (2) Neuropathy: Code(s): G62.9 - Polyneuropathy, unspecified Status: Acute Assessment and Plan: -continue with gabapentin (3) Cellulitis: Code(s): L03.90 - Cellulitis, unspecified Status: Acute Assessment and Plan: LLE with erythema & swelling. Hx dog scratch to the area approx x1 week ago -Venous Doppler US pending -she possibly have obtained pasteurella multocida from the dog scratch. Therefore she was started on doxycycline. She has multiple allergies. Vancomycin would be resistant to this microorganism. -Starting Flagyl today for atypical anaerobic coverage -ID consulted Plan Continue with daily labs, IV abx, IVF, pending Medical Record Review I have reviewed the following patient records and this information was taken into consideration when formulating the assessment and plan.: previous labs, previous ER visits and previous clinic visits Time Spent With Patient Time with patient: Greater than 35 minutes Subjective Date/time seen: 05/12/25 1105 Interval history: Pt lying comfortably in bed upon my arrival with daughter and son at the bedside. Pt c/o a pruritic rash to her chest and back. Pt also reports of mild pain continued to her RLE but it is controlled with acetaminophen. Denies N/V/D, CP, SOB, or any other issues. Only other complaint is a decreased appetite. Review of Systems Review of Systems: All systems reviewed & are unremarkable except as noted in HPI and below Exam Const: General: comfortable and no acute distress HENMT: Face/Nose/Sinus: Normal nares present Mouth: Yes moist mucous membranes Eyes: General: appearance normal, both eyes and all related structures Sclera: sclerae normal Neck: Neck: supple Carotids: no bruits Resp: Effort & Inspection: normal respiratory effort Auscultation: clear to auscultation bilaterally Cardio: Rate: regular rate Rhythm: regular rhythm GI: Inspection: non-distended GI Palp: Yes Soft to palpation Auscultation: normal bowel sounds : Bimanual exam- vagina & uterus: bladder normal to palpation Skin: Rashes: rashes noted (Multiple pruritic red papules noted to chest and upper right leg. ) Other: Papular pruritic rash to her chest, right upper extremity, and full back. Neuro: Speech: normal speech Motor exam (neuro): Normal motor muscle tone present throughout Sensory Exam: normal sensation Extrem: Other: Erythema noted from right ankle to right mid leg, not circumferential. Warm to touch, outlined in marker today. Psych: Mental Status: mental status grossly normal Affect: normal affect Objective Data Vital Signs Vital Signs: Vital Signs - 24 hr 05/11/25 21:44 05/11/25 22:00 05/11/25 23:02 Temperature 101.8 F H 98.6 F Pulse Rate 111 H 114 H 101 H Respiratory Rate 17 13 21 H Blood Pressure 153/86 H 163/94 H 117/47 L Pulse Oximetry 96 93 100 Oxygen Delivery Room Air 05/12/25 00:43 05/12/25 01:00 05/12/25 04:04 Temperature 99.1 F 97.8 F Pulse Rate 53 L 84 Respiratory Rate 18 16 Blood Pressure 135/51 L 147/67 H Pulse Oximetry 96 96 97 Oxygen Delivery Room Air Intake/Output Intake/Output: Intake & Output 05/09/25 05/10/25 05/11/25 05/12/25 23:59 23:59 23:59 23:59 Intake Total 100 400 Output Total 400 Balance 100 0 Meds/Results Medications: Active Medications Generic Name Dose Route Start Last Admin Trade Name Freq PRN Reason Stop Dose Admin Acetaminophen 650 mg 05/11/25 22:54 Acetaminophen 325 Mg Tablet PO Q4H PRN Mild Pain (1-3) or Fever Gabapentin 300 mg 05/12/25 05:46 Gabapentin 300 Mg Capsule PO TID PRN Pain Lactated Ringer's 1,000 mls @ 125 mls/hr 05/11/25 22:55 05/12/25 00:59 Lr - Lactated Ringers Iv IV CONT 125 mls/hr .Q8H [facility]ORGAN Administration Doxycycline Hyclate 100 mg/ 100 mls @ 100 mls/hr 05/12/25 10:00 Sodium Chloride IVPB Q12H [facility] Morphine Sulfate 2 mg 05/11/25 22:54 Morphine Sulfate (*Crx) 4 Mg/Ml Inj IV PUSH Q2H PRN Pain Rated 7-10 Ondansetron HCl 4 mg 05/11/25 22:54 Ondansetron Inj 4 Mg/2 Ml Vial IV PUSH Q4H PRN Nausea Phenol 1 spray 05/12/25 02:39 05/12/25 03:19 Phenol/Sod Pheno [facility] (*Bkc) MUCOUS MEM 1 spray Q4H PRN Administration Sore Throat Triamcinolone Acetonide 1 applic 05/12/25 06:10 05/12/25 06:30 Triamcinolone Acet 0.1% Cream 15 Gm Tube TOPICAL 1 applic Q12HR MORGAN Administration Labs Labs: Laboratory Results - last 24 hr 05/11/25 05/11/25 05/12/25 21:53 22:01 06:31 WBC 12.0 H 12.0 H RBC 5.53 H 4.73 Hgb 16.9 H 14.3 Hct 49.5 H 42.8 MCV 89.5 90.5 MCH 30.6 30.2 MCHC 34.1 33.4 RDW 13.2 13.2 Plt Count 237 222 MPV 8.9 9.2 Immature Gran % (Auto) 0.3 Neut % (Auto) 82.7 H Lymph % (Auto) 8.1 L [place] % (Auto) 6.7 Eos % (Auto) 1.7 Baso % (Auto) 0.5 Lymph # (Auto) 0.98 [place] # (Auto) 0.8 H Eos # (Auto) 0.2 Baso # (Auto) 0.1 Abs Immat Gran (auto) 0.04 H Absolute Neuts (auto) 10.0 H Absolute Nucleated RBC 0.000 Nucleated RBC % 0.0 PT 13.1 INR 1.0 APTT 27.9 Sodium 138 Potassium 3.8 Chloride 105 Carbon Dioxide 24 Anion Gap 9 BUN 14 Creatinine 0.81 Estim Creat Clear Calc 49 Estimated GFR > 60 Glucose 114 H Lactic Acid 1.3 Calcium 9.3 Total Bilirubin 0.9 AST 27 ALT 15 Alkaline Phosphatase 85 C-Reactive Protein 1.4 H Total Protein 8.2 Albumin 4.7 Urine Color Yellow Urine Appearance Clear Urine pH 7.0 Ur Specific [place] 1.013 Urine Protein Negative Urine Glucose (UA) Negative Urine Ketones 1+ H Ur Blood (Man) Negative Urine Nitrate Negative Urine Bilirubin Negative Urine Urobilinogen 1.0 Leukocyte Esterase Rfl Negative Influenza A (RT-PCR) Negative Influenza B (RT-PCR) Negative RSV (RT-PCR) Negative SARS-CoV-2 RNA (RT-PCR) Negative Group A Strep (PCR) Not detected Quality VTE Prophylaxis VTE prophylaxis: mechanical ordered
[2025-05-12 07:05] LABS: Anion Gap 4 mmol/L (4-12); Blood Urea Nitrogen 12 mg/dL (7-17); Calcium 8.5 mg/dL (8.4-10.2); Carbon Dioxide 24 mmol/L (22-30); Chloride 108 mmol/L (98-107); Estimated CRCL calculation 60 ml/min; Estimated Glomerular Filt Rate > 60; Glucose 107 mg/dL (65-110); Potassium 3.6 mmol/L (3.4-5.0); Sodium 136 mmol/L (137-145)
[2025-05-12] MEDS: metroNIDAZOLE 500 MG/ISO 100ML 500 MG/100 ML BAG 100 MG IVPB ×3 (08:38→22:40)
[2025-05-12] MEDS: ACETAMINOPHEN 325 MG TABLET 650 MG PO ×3 (11:20→21:26)
[2025-05-12] MEDS: diphenhydrAMINE HCl CAP 25 MG CAPSULE PO ×3 (11:20→23:39)
[2025-05-12] MEDS: DOXYCYCLINE IV 100 MG in SODIUM CHLORIDE 0.9% IV 100 ML IVPB ×2 (11:21→21:15)
[2025-05-13] VITALS (7 sets, daily range): BP systolic 136–151; BP diastolic 68–87; PULSE 70–110; RESP 14–18; TEMP 36.4–36.9; O2SAT 95–96
[2025-05-13] MEDS: LACTATED RINGERS 1,000 ML 125 ML IV CONT (01:15)
[2025-05-13] MEDS: MORPHINE SULFATE (*CRX) 4 MG/ML INJ 2 MG IV PUSH (01:20)
[2025-05-13] MEDS: metroNIDAZOLE 500 MG/ISO 100ML 500 MG/100 ML BAG 100 MG IVPB (05:03)
[2025-05-13 05:52] LABS: Hematocrit 38.4 % (37.0-47.0); Hemoglobin 12.5 g/dL (12.0-15.0); Mean Corpuscular HGB Conc 32.6 g/dl (32-36); Mean Corpuscular Hemoglobin 30.0 pg (26-34); Mean Corpuscular Volume 92.1 fl (80-100); Platelet Count Result 179 k/mm3 (150-375); Red Blood Count 4.17 M/mm3 (4.2-5.4); White Blood Count 5.3 K/mm3 (4.5-10.0)
[2025-05-13 06:19] LABS: Anion Gap 5 mmol/L (4-12); Blood Urea Nitrogen 9 mg/dL (7-17); Calcium 8.0 mg/dL (8.4-10.2); Carbon Dioxide 24 mmol/L (22-30); Chloride 109 mmol/L (98-107); Estimated CRCL calculation 62 ml/min; Estimated Glomerular Filt Rate > 60; Glucose 103 mg/dL (65-110); Potassium 3.2 mmol/L (3.4-5.0); Sodium 138 mmol/L (137-145)
--- NOTE | 2025-05-13 08:16 | P.PNIM_ITS ---
Assessment and Plan Assessment and Plan (1) Sepsis: Code(s): A41.9 - Sepsis, unspecified organism Status: Acute Assessment and Plan: Resolved. -the patient had tachycardia with multiple bigeminy be and her heart rate improved with IV fluids. -she was febrile with a T-max of 101.8, WDL after x1 dose of acetaminophen -BC pending -CXR NAD -she possibly have obtained pasteurella multocida from the dog scratch. Therefore she was started on doxycycline. She has multiple allergies. Vancomycin would be resistant to this microorganism. -ID consulted -WBC WDL today -she also was tachycardic. Her heart rate improved with IV fluids. Continue with maintenance IV fluids. -Pt VSS since inpt (2) Neuropathy: Code(s): G62.9 - Polyneuropathy, unspecified Status: Acute Assessment and Plan: -continue with gabapentin (3) Cellulitis: Code(s): L03.90 - Cellulitis, unspecified Status: Acute Assessment and Plan: LLE with erythema & swelling. Hx dog scratch to the area approx x1 week ago -Venous Doppler US pending -she possibly have obtained pasteurella multocida from the dog scratch. Therefore she was started on doxycycline. She has multiple allergies. Vancomycin would be resistant to this microorganism. -Starting Flagyl today for atypical anaerobic coverage -ID consulted -RLE US no DVT Plan Continue with daily labs, IV abx, IVF, pending BC K 3.2 this AM, probable due to low appetite, x1 40meq PO given, continue to monitor Medical Record Review I have reviewed the following patient records and this information was taken into consideration when formulating the assessment and plan.: previous labs, previous ER visits and previous clinic visits Time Spent With Patient Time with patient: Greater than 35 minutes Subjective Date/time seen: 05/13/25 1058 Interval history: Pt lying comfortably in bed upon my arrival. Pt not c/o itching today, states that once she took her gabapentin this AM, that the itching went away. Denies N/V/D, CP, SOB, or any other issues. Continues to report a decreased appetite but has been eating and drinking appropriately. Review of Systems Review of Systems: All systems reviewed & are unremarkable except as noted in HPI and below Exam Const: General: comfortable and no acute distress HENMT: Face/Nose/Sinus: Normal nares present Mouth: Yes moist mucous membranes Eyes: General: appearance normal, both eyes and all related structures Sclera: sclerae normal Neck: Neck: supple Carotids: no bruits Resp: Effort & Inspection: normal respiratory effort Auscultation: clear to auscultation bilaterally Cardio: Rate: regular rate Rhythm: regular rhythm GI: Inspection: non-distended GI Palp: Yes Soft to palpation Auscultation: normal bowel sounds : Bimanual exam- vagina & uterus: bladder normal to palpation Skin: Rashes: rashes noted (Multiple pruritic red papules noted to chest and upper right leg. ) Other: Papular rash to her chest, right upper extremity, and full back. Neuro: Speech: normal speech Motor exam (neuro): Normal motor muscle tone present throughout Sensory Exam: normal sensation Extrem: Other: Erythema noted from right ankle to right mid leg, not circumferential. Warm to touch, outlined in marker today. Psych: Mental Status: mental status grossly normal Affect: normal affect Objective Data Vital Signs Vital Signs: Vital Signs - 24 hr 05/12/25 12:00 05/12/25 13:38 05/12/25 16:00 Temperature 98.5 F Pulse Rate 95 84 74 Respiratory Rate 16 Blood Pressure 133/47 L Pulse Oximetry 96 Oxygen Delivery 05/12/25 19:43 05/12/25 20:06 05/12/25 21:29 Temperature 98.6 F Pulse Rate 76 74 Respiratory Rate 17 Blood Pressure 117/43 L Pulse Oximetry 97 97 Oxygen Delivery Room Air 05/13/25 00:30 05/13/25 04:05 05/13/25 06:00 Temperature 97.5 F L Pulse Rate 75 79 70 Respiratory Rate 17 Blood Pressure 138/68 Pulse Oximetry 95 Oxygen Delivery Intake/Output Intake/Output: Intake & Output 05/10/25 05/11/25 05/12/25 05/13/25 23:59 23:59 23:59 23:59 Intake Total 100 2680 1400 Output Total 1500 600 Balance 100 1180 800 Meds/Results Medications: Active Medications Generic Name Dose Route Start Last Admin Trade Name Freq PRN Reason Stop Dose Admin Acetaminophen 650 mg 05/11/25 22:54 05/12/25 21:26 Acetaminophen 325 Mg Tablet PO 650 mg Q4H PRN Administration Mild Pain (1-3) or Fever Diphenhydramine HCl 25 mg 05/12/25 10:11 05/12/25 23:39 Diphenhydramine Hcl Cap 25 Mg Capsule PO 25 mg Q6H PRN Administration Itching Gabapentin 300 mg 05/12/25 05:46 Gabapentin 300 Mg Capsule PO TID PRN Pain Lactated Ringer's 1,000 mls @ 125 mls/hr 05/11/25 22:55 05/13/25 01:15 Lr - Lactated Ringers Iv IV CONT 125 mls/hr .Q8H [facility]ORGAN Administration Doxycycline Hyclate 100 mg/ 100 mls @ 100 mls/hr 05/12/25 10:00 05/12/25 22:15 Sodium Chloride IVPB Infused Q12H [facility]GAN Infusion Metronidazole 500 mg in 100 mls @ 100 mls/hr 05/12/25 07:50 05/13/25 06:03 Flagyl 500 Mg/Iso Soln 100 Ml IVPB Infused Q8HR [facility]ORGAN Infusion Morphine Sulfate 2 mg 05/11/25 22:54 05/13/25 01:20 Morphine Sulfate (*Crx) 4 Mg/Ml Inj IV PUSH 2 mg Q2H PRN Administration Pain Rated 7-10 Ondansetron HCl 4 mg 05/11/25 22:54 Ondansetron Inj 4 Mg/2 Ml Vial IV PUSH Q4H PRN Nausea Phenol 1 spray 05/12/25 02:39 05/12/25 03:19 Phenol/Sod Pheno [facility] (*Bkc) MUCOUS MEM 1 spray Q4H PRN Administration Sore Throat Triamcinolone Acetonide 1 applic 05/12/25 06:10 05/12/25 21:21 Triamcinolone Acet 0.1% Cream 15 Gm Tube TOPICAL Not Given Q12HR [facility] Radiology Results: ITS Impressions Chest X-Ray 05/12/25 08:50 IMPRESSION: 1. No acute cardiopulmonary findings given portable technique. Consider PA and lateral films with deep inspiration. Venous Doppler Study 05/12/25 10:09 IMPRESSION: 1. No right leg DVT. 2. Large fluid collection along medial knee. Labs Labs: Laboratory Results - last 24 hr 05/13/25 05:25 WBC 5.3 RBC 4.17 L Hgb 12.5 Hct 38.4 MCV 92.1 MCH 30.0 MCHC 32.6 RDW 13.3 Plt Count 179 MPV 9.5 Sodium 138 Potassium 3.2 L Chloride 109 H Carbon Dioxide 24 Anion Gap 5 BUN 9 Creatinine 0.62 L Estim Creat Clear Calc 62 Estimated GFR > 60 Glucose 103 Calcium 8.0 L Quality VTE Prophylaxis VTE prophylaxis: mechanical ordered
[2025-05-13] MEDS: diphenhydrAMINE HCl CAP 25 MG CAPSULE PO ×2 (09:09→21:05)
[2025-05-13] MEDS: ACETAMINOPHEN 325 MG TABLET 650 MG PO (09:09)
[2025-05-13] MEDS: GABAPENTIN 300 MG CAPSULE PO ×3 (09:09→21:05)
[2025-05-13] MEDS: POTASSIUM CHLORIDE 20 MEQ ER TABLET 40 MEQ PO (09:09)
[2025-05-13] MEDS: DOXYCYCLINE IV 100 MG in SODIUM CHLORIDE 0.9% IV 100 ML IVPB (09:10)
[2025-05-13 14:22] LABS: Creatine Kinase 56 U/L (30-135)
[2025-05-13] MEDS: levoFLOXacin 750 MG/D5W 150 ML 750 MG/150 ML BAG 100 MG IVPB (14:51)
--- NOTE | 2025-05-13 19:24 | P.CONINF_ITS ---
Assessment and Plan Assessment and plan (1) Cellulitis: Code(s): L03.90 - Cellulitis, unspecified Status: Acute Plan ASSESSMENT: 1. RLE cellulitis after her dog scratched her 2. obesity 3. allergies to penicillin, keflex, azithromycin RECOMMENDATIONS: -change abx to daptomycin and levaquin -check baseline CPK -f/u on blood cxs d/w pharmacy staff Pt was seen via video telehealth consultation with the assistance of staff. Chart, data and patient info reviewed. Patient was located at [facility] while I was in my [place] office. Pt gave consent. HPI Data of Consult Date/Time: 05/13/25 19:24 Requesting Physician: Merissa Arvizu MD Primary Care Provider: Baldomero Asif MD Consult Narrative Reason for consult: RLE cellulitis, abx mgmt Narrative: Kayley Gutierrez is a 84 year old female with pmhx/o obesity, recently was scratched by her dog on the right LE. pt states she brusises easily due to thin skin. Now presents with sepsis, fever, leukocyotosis and RLE cellulitis. Has several abx allergies. [facility] Past Medical History Medical History (Updated 05/12/25 @ 06:22 by Shanika Campbell APRN) Animal scratch Neuropathy Obesity (BMI 30.0-34.9) Adhesive capsulitis of right shoulder Surgical History Surgical History (Updated 05/12/25 @ 06:05 by Shanika Campbell APRN) H/O tubal ligation Hx of cholecystectomy Family History Family History Father Diabetes mellitus, Onset Age: 89 Hypertension, Onset Age: 89 Cerebrovascular accident, Onset Age: 89 Grandparent Family history of cardiovascular disease Sibling Family history of malignant neoplasm of urinary bladder Social History Social History (Updated 05/12/25 @ 06:06 by Shanika Campbell APRN) Social History: The patient is . She has 2 children. She is retired. She lives home alone with her dog. Code status: Full code Smoking status: Never smoker Alcohol intake: never Substance use: never Substance use type: does not use Lack of Transportation: No Lack of Food: Never True Current Housing: I Have Housing Concerned About Future Housing: No Difficulty Paying Gas/Electric Bills: No Difficulty Paying for Meds: No Currently Unemployed: No Education: High School Diploma/GED Difficulty w/ Childcare or Family Care: No Spiritual care concerns: No Meds Home Medications and Allergies Home Medications ?Medication ?Instructions ?Recorded ?Confirmed ?Type triamcinolone acetonide 0.1 % 1 applic topical QID #80 grams 05/10/25 05/12/25 Rx topical cream gabapentin 300 mg capsule 300 mg PO TID PRN pain 05/1205/12/25 History Allergies Allergy/AdvReac Type Severity Reaction Status Date / Time azithromycin Allergy Unknown Skin Verified 05/12/25 00:38 Reaction cephalexin Allergy Unknown Skin Verified 05/12/25 00:38 Reaction Cephalosporins Allergy Unknown Unknown Verified 05/12/25 00:38 codeine Allergy Unknown unknown Verified 05/12/25 00:38 fluticasone Allergy Unknown Skin Verified 05/12/25 00:38 Reaction Penicillins Allergy Unknown Skin Verified 05/12/25 00:38 Reaction Vital Signs Vital Signs - 24 hr 05/12/25 19:43 05/12/25 20:06 05/12/25 21:29 Temperature 98.6 F Pulse Rate 76 74 Respiratory Rate 17 Blood Pressure 117/43 L Pulse Oximetry 97 97 Oxygen Delivery Room Air 05/13/25 00:30 05/13/25 04:05 05/13/25 06:00 Temperature 97.5 F L Pulse Rate 75 79 70 Respiratory Rate 17 Blood Pressure 138/68 Pulse Oximetry 95 Oxygen Delivery 05/13/25 08:00 05/13/25 08:30 05/13/25 08:54 Temperature Pulse Rate 110 H Respiratory Rate Blood Pressure Pulse Oximetry 95 Oxygen Delivery Room Air Room Air 05/13/25 13:56 Temperature 97.7 F Pulse Rate 73 Respiratory Rate 14 Blood Pressure 136/87 Pulse Oximetry 95 Oxygen Delivery Exam 2 Narrative: RLE with warmth, erythema and edema; not really tender pt on room air, non-toxic, NAD pale Results Labs 05/13/25 05:25 05/13/25 05:25 Labs: Short CBC 05/13/25 Range/Units 05:25 WBC 5.3 (4.5-10.0) K/mm3 Hgb 12.5 (12.0-15.0) g/dL Hct 38.4 (37.0-47.0) % Plt Count 179 (150-375) k/mm3 BMP 05/13/25 05:25 Sodium 138 Potassium 3.2 L Chloride 109 H Carbon Dioxide 24 BUN 9 Creatinine 0.62 L Glucose 103 Calcium 8.0 L Cardiac Enzymes 05/13/25 Range/Units 05:21 Total Creatine Kinase 56 (30-135) U/L
[2025-05-13] MEDS: PHENOL/SOD PHENO SPRAY CHERRY (*BKC) 1 SPRAY MUCOUS MEM (21:06)
[2025-05-14 05:02] VITALS: BP 127/60; PULSE 84; RESP 16; TEMP 36.9; O2SAT 96
[2025-05-14 06:02] LABS: Hematocrit 38.9 % (37.0-47.0); Hemoglobin 12.8 g/dL (12.0-15.0); Mean Corpuscular HGB Conc 32.9 g/dl (32-36); Mean Corpuscular Hemoglobin 29.9 pg (26-34); Mean Corpuscular Volume 90.9 fl (80-100); Platelet Count Result 185 k/mm3 (150-375); Red Blood Count 4.28 M/mm3 (4.2-5.4); White Blood Count 5.2 K/mm3 (4.5-10.0)
[2025-05-14 06:33] LABS: Anion Gap 3 mmol/L (4-12); Blood Urea Nitrogen 10 mg/dL (7-17); Calcium 8.4 mg/dL (8.4-10.2); Carbon Dioxide 26 mmol/L (22-30); Chloride 106 mmol/L (98-107); Estimated CRCL calculation 61 ml/min; Estimated Glomerular Filt Rate > 60; Glucose 91 mg/dL (65-110); Potassium 3.5 mmol/L (3.4-5.0); Sodium 135 mmol/L (137-145)
--- NOTE | 2025-05-14 08:02 | P.PNIM_ITS ---
Assessment and Plan Assessment and Plan (1) Sepsis: Code(s): A41.9 - Sepsis, unspecified organism Status: Acute Assessment and Plan: Resolved. -the patient had tachycardia with multiple bigeminy be and her heart rate improved with IV fluids. -she was febrile with a T-max of 101.8, WDL after x1 dose of acetaminophen -BC pending -CXR NAD -she possibly have obtained pasteurella multocida from the dog scratch. Therefore she was started on doxycycline. She has multiple allergies. Vancomycin would be resistant to this microorganism. -ID following -WBC continues to be WDL -she also was tachycardic. Her heart rate improved with IV fluids. Continue with maintenance IV fluids. -Pt VSS since inpt (2) Neuropathy: Code(s): G62.9 - Polyneuropathy, unspecified Status: Acute Assessment and Plan: -continue with gabapentin (3) Cellulitis: Code(s): L03.90 - Cellulitis, unspecified Status: Acute Assessment and Plan: LLE with erythema & swelling. Hx dog scratch to the area approx x1 week ago -Venous Doppler US no DVT -she possibly have obtained pasteurella multocida from the dog scratch. Therefore she was started on doxycycline. She has multiple allergies. Vancomycin would be resistant to this microorganism. -ID following with recs: -change abx to daptomycin and levaquin -check baseline CPK -f/u on blood cxs -Continue daptomycin & levaquin IV (4) Pruritic rash: Code(s): L28.2 - Other prurigo Status: Acute Assessment and Plan: Chest, entire back, RUE -Reports itching better overall today -Benadryl PRN Plan Continue with daily labs, IV abx, IVF, pending BC, ID following Medical Record Review I have reviewed the following patient records and this information was taken into consideration when formulating the assessment and plan.: previous labs, previous ER visits and previous clinic visits Time Spent With Patient Time with patient: Greater than 35 minutes Subjective Date/time seen: 05/14/25 1216 Interval history: Pt lying comfortably in bed upon my arrival. Pt denies any issues with her rash today and it looks better upon exam. Denies N/V/D, CP, SOB, or any other issues. Pt feels better all around today, ambulating more around her room. Review of Systems Review of Systems: All systems reviewed & are unremarkable except as noted in HPI and below Exam Const: General: comfortable and no acute distress HENMT: Face/Nose/Sinus: Normal nares present Mouth: Yes moist mucous membranes Eyes: General: appearance normal, both eyes and all related structures Sclera: sclerae normal Neck: Neck: supple Carotids: no bruits Resp: Effort & Inspection: normal respiratory effort Auscultation: clear to auscultation bilaterally Cardio: Rate: regular rate Rhythm: regular rhythm GI: Inspection: non-distended GI Palp: Yes Soft to palpation Auscultation: normal bowel sounds : Bimanual exam- vagina & uterus: bladder normal to palpation Skin: Rashes: rashes noted Other: Papular rash to her chest, right upper extremity, and full back. Neuro: Speech: normal speech Motor exam (neuro): Normal motor muscle tone present throughout Sensory Exam: normal sensation Extrem: Other: Erythema noted from right ankle to right mid leg, not circumferential. No longer warm to touch, outlined in marker, has not gotten bigger Psych: Mental Status: mental status grossly normal Affect: normal affect Objective Data Vital Signs Vital Signs: Vital Signs - 24 hr 05/13/25 08:30 05/13/25 08:54 05/13/25 13:56 Temperature 97.7 F Pulse Rate 73 Respiratory Rate 14 Blood Pressure 136/87 Pulse Oximetry 95 95 Oxygen Delivery Room Air Room Air 05/13/25 21:10 05/13/25 21:10 05/14/25 05:02 Temperature 98.4 F 98.4 F Pulse Rate 85 84 Respiratory Rate 18 16 Blood Pressure 151/81 H 127/60 Pulse Oximetry 96 96 Oxygen Delivery Room Air Intake/Output Intake/Output: Intake & Output 05/11/25 05/12/25 05/13/25 05/14/25 23:59 23:59 23:59 23:59 Intake Total 100 2680 2380 425 Output Total 1500 600 Balance 100 1180 1780 425 Meds/Results Medications: Active Medications Generic Name Dose Route Start Last Admin Trade Name Freq PRN Reason Stop Dose Admin Acetaminophen 650 mg 05/11/25 22:54 05/13/25 09:09 Acetaminophen 325 Mg Tablet PO 650 mg Q4H PRN Administration Mild Pain (1-3) or Fever Diphenhydramine HCl 25 mg 05/12/25 10:11 05/13/25 21:05 Diphenhydramine Hcl Cap 25 Mg Capsule PO 25 mg Q6H PRN Administration Itching Gabapentin 300 mg 05/12/25 05:46 05/13/25 21:05 Gabapentin 300 Mg Capsule PO 300 mg TID PRN Administration Pain Levofloxacin/Dextrose 750 mg in 150 mls @ 100 mls/hr 05/13/25 14:00 05/13/25 16:21 Levaquin 750 Mg/D5w 150 Ml IVPB Infused Q24H [facility] Infusion Daptomycin 400 mg/ Sodium 50 mls @ 100 mls/hr 05/13/25 15:00 05/13/25 17:25 Chloride IVPB Infused Q24H [facility] Infusion Morphine Sulfate 2 mg 05/11/25 22:54 05/13/25 01:20 Morphine Sulfate (*Crx) 4 Mg/Ml Inj IV PUSH 2 mg Q2H PRN Administration Pain Rated 7-10 Ondansetron HCl 4 mg 05/11/25 22:54 Ondansetron Inj 4 Mg/2 Ml Vial IV PUSH Q4H PRN Nausea Phenol 1 spray 05/12/25 02:39 05/13/25 21:06 Phenol/Sod Pheno [place] (*Bkc) MUCOUS MEM 1 spray Q4H PRN Administration Sore Throat Triamcinolone Acetonide 1 applic 05/12/25 06:10 05/13/25 21:59 Triamcinolone Acet 0.1% Cream 15 Gm Tube TOPICAL Not Given Q12HR [facility] Radiology Results: ITS Impressions Chest X-Ray 05/12/25 08:50 IMPRESSION: 1. No acute cardiopulmonary findings given portable technique. Consider PA and lateral films with deep inspiration. Venous Doppler Study 05/12/25 10:09 IMPRESSION: 1. No right leg DVT. 2. Large fluid collection along medial knee. Labs Labs: Laboratory Results - last 24 hr 05/13/25 05/14/25 05:21 05:21 WBC 5.2 RBC 4.28 Hgb 12.8 Hct 38.9 MCV 90.9 MCH 29.9 MCHC 32.9 RDW 13.2 Plt Count 185 MPV 9.4 Sodium 135 L Potassium 3.5 Chloride 106 Carbon Dioxide 26 Anion Gap 3 L BUN 10 Creatinine 0.63 L Estim Creat Clear Calc 61 Estimated GFR > 60 Glucose 91 Calcium 8.4 Total Creatine Kinase 56 Quality VTE Prophylaxis VTE prophylaxis: mechanical ordered
--- NOTE | 2025-05-14 10:07 | P.PNINF_ITS ---
Progress Note: A&P Assessment and Plan (1) Cellulitis: Code(s): L03.90 - Cellulitis, unspecified Status: Acute Plan ASSESSMENT: 1. RLE cellulitis after her dog scratched her 2. obesity 3. allergies to penicillin, keflex, azithromycin RECOMMENDATIONS: -daptomycin and levaquin (both day 2) -check baseline CPK--ok -f/u on blood cxs d/w pharmacy staff Pt was seen via video telehealth consultation with the assistance of staff. Chart, data and patient info reviewed. Patient was located at [facility] while I was in my [place] office. Pt gave consent. Subjective Date/time seen: 05/14/25 10:07 Interval history: no fever no leukocytosis Exam Narrative: NAD, non-toxic RLE with less angry erythema; still with some edema Objective Data Vital Signs Vital Signs: Vital Signs - 24 hr 05/13/25 13:56 05/13/25 21:10 05/13/25 21:10 Temperature 97.7 F 98.4 F Pulse Rate 73 85 Respiratory Rate 14 18 Blood Pressure 136/87 151/81 H Pulse Oximetry 95 96 Oxygen Delivery Room Air 05/14/25 05:02 Temperature 98.4 F Pulse Rate 84 Respiratory Rate 16 Blood Pressure 127/60 Pulse Oximetry 96 Oxygen Delivery Intake/Output Intake/Output: Intake & Output 05/11/25 05/12/25 05/13/25 05/14/25 23:59 23:59 23:59 23:59 Intake Total 100 2680 2380 425 Output Total 1500 600 Balance 100 1180 1780 425 Meds/Results Medications: Active Medications Generic Name Dose Route Start Last Admin Trade Name Freq PRN Reason Stop Dose Admin Acetaminophen 650 mg 05/11/25 22:54 05/13/25 09:09 Acetaminophen 325 Mg Tablet PO 650 mg Q4H PRN Administration Mild Pain (1-3) or Fever Diphenhydramine HCl 25 mg 05/12/25 10:11 05/13/25 21:05 Diphenhydramine Hcl Cap 25 Mg Capsule PO 25 mg Q6H PRN Administration Itching Gabapentin 300 mg 05/12/25 05:46 05/13/25 21:05 Gabapentin 300 Mg Capsule PO 300 mg TID PRN Administration Pain Levofloxacin/Dextrose 750 mg in 150 mls @ 100 mls/hr 05/13/25 14:00 05/13/25 16:21 Levaquin 750 Mg/D5w 150 Ml IVPB Infused Q24H [facility] Infusion Daptomycin 400 mg/ Sodium 50 mls @ 100 mls/hr 05/13/25 15:00 05/13/25 17:25 Chloride IVPB Infused Q24H [facility] Infusion Morphine Sulfate 2 mg 05/11/25 22:54 05/13/25 01:20 Morphine Sulfate (*Crx) 4 Mg/Ml Inj IV PUSH 2 mg Q2H PRN Administration Pain Rated 7-10 Ondansetron HCl 4 mg 05/11/25 22:54 Ondansetron Inj 4 Mg/2 Ml Vial IV PUSH Q4H PRN Nausea Phenol 1 spray 05/12/25 02:39 05/13/25 21:06 Phenol/Sod Pheno [place] (*Bkc) MUCOUS MEM 1 spray Q4H PRN Administration Sore Throat Triamcinolone Acetonide 1 applic 05/12/25 06:10 05/14/25 08:44 Triamcinolone Acet 0.1% Cream 15 Gm Tube TOPICAL Not Given Q12HR [facility] Radiology Results: ITS Impressions Chest X-Ray 05/12/25 08:50 IMPRESSION: 1. No acute cardiopulmonary findings given portable technique. Consider PA and lateral films with deep inspiration. Venous Doppler Study 05/12/25 10:09 IMPRESSION: 1. No right leg DVT. 2. Large fluid collection along medial knee. Labs Labs: Laboratory Results - last 24 hr 05/13/25 05/14/25 05:21 05:21 WBC 5.2 RBC 4.28 Hgb 12.8 Hct 38.9 MCV 90.9 MCH 29.9 MCHC 32.9 RDW 13.2 Plt Count 185 MPV 9.4 Sodium 135 L Potassium 3.5 Chloride 106 Carbon Dioxide 26 Anion Gap 3 L BUN 10 Creatinine 0.63 L Estim Creat Clear Calc 61 Estimated GFR > 60 Glucose 91 Calcium 8.4 Total Creatine Kinase 56
[2025-05-14 13:59] VITALS: BP 126/72; PULSE 92; RESP 14; TEMP 36.7; O2SAT 98
[2025-05-14] MEDS: levoFLOXacin 750 MG/D5W 150 ML 750 MG/150 ML BAG 100 MG IVPB (15:45)
[2025-05-14] MEDS: GABAPENTIN 300 MG CAPSULE PO (18:04)
[2025-05-14 19:30] VITALS: PULSE 80; RESP 18; O2SAT 98
[2025-05-14 22:00] VITALS: BP 128/73; PULSE 80; RESP 18; TEMP 36.8; O2SAT 98
[2025-05-15 04:18] VITALS: BP 146/64; PULSE 73; RESP 18; TEMP 36.4; O2SAT 97
[2025-05-15] MEDS: diphenhydrAMINE HCl CAP 25 MG CAPSULE PO (04:21)
[2025-05-15] MEDS: ACETAMINOPHEN 325 MG TABLET 650 MG PO ×2 (04:21→19:57)
[2025-05-15 05:43] LABS: Hematocrit 37.5 % (37.0-47.0); Hemoglobin 12.4 g/dL (12.0-15.0); Immature Granulocyte Percent A 0.7 % (0-0.5); Lymphocytes Absolute Auto 1.58 K/mm3 (0.9-3.2); Mean Corpuscular HGB Conc 33.1 g/dl (32-36); Mean Corpuscular Hemoglobin 30.1 pg (26-34); Mean Corpuscular Volume 91.0 fl (80-100); Nucleated Red Blood Cells Absolute Auto 0.000 K/mm3 (0.0-0.012); Nucleated Red Blood Cells Perc 0.0 % (0.0-0.2); Platelet Count Result 183 k/mm3 (150-375); Red Blood Count 4.12 M/mm3 (4.2-5.4); White Blood Count 4.6 K/mm3 (4.5-10.0)
[2025-05-15 06:10] LABS: Anion Gap 4 mmol/L (4-12); Blood Urea Nitrogen 9 mg/dL (7-17); Calcium 8.4 mg/dL (8.4-10.2); Carbon Dioxide 25 mmol/L (22-30); Chloride 107 mmol/L (98-107); Estimated CRCL calculation 61 ml/min; Estimated Glomerular Filt Rate > 60; Glucose 109 mg/dL (65-110); Potassium 3.3 mmol/L (3.4-5.0); Sodium 136 mmol/L (137-145)
--- NOTE | 2025-05-15 10:33 | P.PNINF_ITS ---
Progress Note: A&P Assessment and Plan (1) Cellulitis: Code(s): L03.90 - Cellulitis, unspecified Status: Acute Plan ASSESSMENT: 1. RLE cellulitis after her dog scratched her 2. obesity 3. allergies to penicillin, keflex, azithromycin RECOMMENDATIONS: -daptomycin and levaquin (both day 3) -check baseline CPK--ok -f/u on blood cxs-->NGTD ok to discharge in am on levaquin 750 mg po daily and clindamycin 300 mg po TID, both x 7 days d/w pharmacy staff Pt was seen via video telehealth consultation with the assistance of staff. Chart, data and patient info reviewed. Patient was located at [facility] while I was in my [place] office. Pt gave consent. Subjective Date/time seen: 05/15/25 10:33 Interval history: no fever no leukocytosis Exam Narrative: RLE decreased erythema Objective Data Vital Signs Vital Signs: Vital Signs - 24 hr 05/14/25 13:59 05/14/25 19:30 05/14/25 22:00 Temperature 98.0 F 98.3 F Pulse Rate 92 80 80 Respiratory Rate 14 18 18 Blood Pressure 126/72 128/73 Pulse Oximetry 98 98 98 Oxygen Delivery Room Air 05/15/25 04:18 Temperature 97.6 F Pulse Rate 73 Respiratory Rate 18 Blood Pressure 146/64 H Pulse Oximetry 97 Oxygen Delivery Intake/Output Intake/Output: Intake & Output 05/12/25 05/13/25 05/14/25 05/15/25 23:59 23:59 23:59 23:59 Intake Total 2680 2380 1265 480 Output Total 1500 600 Balance 1180 1780 1265 480 Meds/Results Medications: Active Medications Generic Name Dose Route Start Last Admin Trade Name Freq PRN Reason Stop Dose Admin Acetaminophen 650 mg 05/11/25 22:54 05/15/25 04:21 Acetaminophen 325 Mg Tablet PO 650 mg Q4H PRN Administration Mild Pain (1-3) or Fever Artificial Tears 1 drop 05/14/25 22:24 Artificial Tears Ophth Soln 15 Ml Bottle EACH EYE QID PRN Dry Eye(s) Diphenhydramine HCl 25 mg 05/12/25 10:11 05/15/25 04:21 Diphenhydramine Hcl Cap 25 Mg Capsule PO 25 mg Q6H PRN Administration Itching Gabapentin 300 mg 05/12/25 05:46 05/14/25 18:04 Gabapentin 300 Mg Capsule PO 300 mg TID PRN Administration Pain Levofloxacin/Dextrose 750 mg in 150 mls @ 100 mls/hr 05/13/25 14:00 05/14/25 17:15 Levaquin 750 Mg/D5w 150 Ml IVPB Infused Q24H [facility] Infusion Daptomycin 400 mg/ Sodium 50 mls @ 100 mls/hr 05/13/25 15:00 05/14/25 18:30 Chloride IVPB Infused Q24H [facility] Infusion Morphine Sulfate 2 mg 05/11/25 22:54 05/13/25 01:20 Morphine Sulfate (*Crx) 4 Mg/Ml Inj IV PUSH 2 mg Q2H PRN Administration Pain Rated 7-10 Ondansetron HCl 4 mg 05/11/25 22:54 Ondansetron Inj 4 Mg/2 Ml Vial IV PUSH Q4H PRN Nausea Phenol 1 spray 05/12/25 02:39 05/13/25 21:06 Phenol/Sod Pheno [place] (*Bkc) MUCOUS MEM 1 spray Q4H PRN Administration Sore Throat Potassium Chloride 40 meq 05/15/25 09:40 Potassium Chloride 20 Meq Packet (For Liquid) PO DAILY [facility] Triamcinolone Acetonide 1 applic 05/14/25 18:31 Triamcinolone Acet 0.1% Cream 15 Gm Tube TOPICAL Q12HR PRN rash/ ithcing Radiology Results: ITS Impressions Chest X-Ray 05/12/25 08:50 IMPRESSION: 1. No acute cardiopulmonary findings given portable technique. Consider PA and lateral films with deep inspiration. Venous Doppler Study 05/12/25 10:09 IMPRESSION: 1. No right leg DVT. 2. Large fluid collection along medial knee. Labs Labs: Laboratory Results - last 24 hr 05/15/25 05:32 WBC 4.6 RBC 4.12 L Hgb 12.4 Hct 37.5 MCV 91.0 MCH 30.1 MCHC 33.1 RDW 13.2 Plt Count 183 MPV 9.0 Immature Gran % (Auto) 0.7 H Neut % (Auto) 40.0 L Lymph % (Auto) 34.7 Boundary % (Auto) 15.8 H Eos % (Auto) 7.9 H Baso % (Auto) 0.9 Lymph # (Auto) 1.58 Boundary # (Auto) 0.7 H Eos # (Auto) 0.4 H Baso # (Auto) 0.0 Abs Immat Gran (auto) 0.03 Absolute Neuts (auto) 1.8 Absolute Nucleated RBC 0.000 Nucleated RBC % 0.0 Sodium 136 L Potassium 3.3 L Chloride 107 Carbon Dioxide 25 Anion Gap 4 BUN 9 Creatinine 0.64 L Estim Creat Clear Calc 61 Estimated GFR > 60 Glucose 109 Calcium 8.4
[2025-05-15] MEDS: POTASSIUM CHLORIDE 20 MEQ PACKET (FOR LIQUID) 40 MEQ PO (11:20)
--- NOTE | 2025-05-15 13:12 | PM.IMPN2 ---
Assessment and Plan Assessment and Plan (1) Sepsis: Code(s): A41.9 - Sepsis, unspecified organism Status: Acute Assessment and Plan: Resolved. -the patient had tachycardia with multiple bigeminy be and her heart rate improved with IV fluids. -she was febrile with a T-max of 101.8, WDL after x1 dose of acetaminophen -BC pending -CXR NAD -she possibly have obtained pasteurella multocida from the dog scratch. Therefore she was started on doxycycline. She has multiple allergies. Vancomycin would be resistant to this microorganism. -ID following -WBC continues to be WDL -she also was tachycardic. Her heart rate improved with IV fluids. Continue with maintenance IV fluids. -Pt VSS since inpt bc prelim negative (2) Neuropathy: Code(s): G62.9 - Polyneuropathy, unspecified Status: Acute Assessment and Plan: -continue with gabapentin (3) Cellulitis: Code(s): L03.90 - Cellulitis, unspecified Status: Acute Assessment and Plan: LLE with erythema & swelling. Hx dog scratch to the area approx x1 week ago -Venous Doppler US no DVT -she possibly have obtained pasteurella multocida from the dog scratch. Therefore she was started on doxycycline. She has multiple allergies. Vancomycin would be resistant to this microorganism. -ID following with recs: -change abx to daptomycin and levaquin -check baseline CPK -f/u on blood cxs -Continue daptomycin & levaquin IV possibly downgrade to PO antibiotics today and anticipate discharge (4) Pruritic rash: Code(s): L28.2 - Other prurigo Status: Acute Assessment and Plan: Chest, entire back, RUE -Reports itching better overall today -Benadryl PRN Plan Continue with daily labs, IV abx, IVF, BC prelim negat, ID following Medical Record Review I have reviewed the following patient records and this information was taken into consideration when formulating the assessment and plan.: previous labs Time Spent With Patient Time with patient: 25 - 35 minutes Subjective Date/time seen: 05/15/25 13:12 Interval history: Pt is seen and examined. ID is following hopefully downgrade to PO antibiotics and anticipate discharge. Review of Systems Review of Systems: All systems reviewed & are unremarkable except as noted in HPI and below Constitutional: Constitutional: Reports as per HPI and Reports no additional constitutional complaints Eyes: Eyes: Reports as per HPI and Reports no additional eye complaints ENT: Reports system reviewed and no additional complaints, except as documented and Reports Normal hearing present Cardiovascular: Cardiovascular: Reports no additional cardiovascular complaints Respiratory: Respiratory: Reports as per HPI and Reports no additional respiratory complaints Gastrointestinal: Gastrointestinal: Reports as per HPI and Reports no additional gastrointestinal complaints Genitourinary: Genitourinary: Reports no additional female genitourinary complaints Musculoskeletal: Musculoskeletal: Reports no additional musculoskeletal complaints Integumentary/Breasts: Skin/Breast: Reports system reviewed and no additional complaints, except as docu Neurologic: Reports system reviewed and no additional complaints, except as documented and Reports Normal hearing present Psychiatric: Psychiatric: Reports no additional psychiatric complaints and Reports as per HPI Hematologic/Lymphatic: Hematologic/Lymphatic: Reports no additional hematologic/lymphatic complaints Allergic/Immunologic: Allergic/Immunologic: Reports no additional allergic/immunologic complaints Exam Const: General: cooperative, comfortable, no acute distress, well developed, awake, Physically active, average body habitus and well nourished Nutritional Appearance: average body habitus and well nourished Orientation/consciousness: oriented to person, oriented to place, oriented to time and patient oriented x3 Limitations: no limitations HENMT: Head: normal to inspection, No palpable skull fracture present, normocephalic, atraumatic and abrasion Ears: hearing grossly normal bilaterally Face/Nose/Sinus: Normal nares present Mouth: Yes moist mucous membranes Eyes: General: appearance normal, both eyes and all related structures Alignment and Position: alignment normal Periorbital: periorbital findings normal Eyelids: eyelids normal Sclera: sclerae normal Pupils: Equal, round and reactive pupils present Neck: Neck: normal visual inspection, full ROM and supple Carotids: no bruits Chest: Chest palpation & inspection: normal inspection of the chest Resp: Effort & Inspection: normal respiratory effort Auscultation: clear to auscultation bilaterally Cardio: Palpation: normal PMI Rate: regular rate Rhythm: regular rhythm and abnormal rhythm Heart sounds: S1 normal heart sound present and S2 normal heart sound present Peripheral pulses: Peripheral pulses 2+ throughout Other: Occasional skipped beat GI: Inspection: normal to inspection and non-distended Auscultation: normal bowel sounds Rectal Exam: deferred : General: Yes bladder normal to palpation and Yes no CVA tenderness Bimanual exam- vagina & uterus: bladder normal to palpation Back/Spine/Pelvis: Back: no CVA tenderness Cervical Spine: cervical ROM normal Skin: General skin exam: rashes Rashes: rashes noted Other: Papular rash to her chest, right upper extremity, and full back. Neuro: General: oriented to person, oriented to place, oriented to time and patient oriented x3 Cranial nerves: Yes Equal, round and reactive pupils present and Yes Normal hearing present Cognition (Neuro): normal cognition Speech: normal speech Motor exam (neuro): 5/5 motor strength present throughout and Normal motor muscle tone present throughout Sensory Exam: normal sensation Extrem: General: normal to inspection Right upper extremity: normal to inspection and shoulder/upper arm Left upper extremity: normal to inspection and shoulder/upper arm Left lower extremity: normal to inspection Other: Erythema noted from right ankle to right mid leg, not circumferential. No longer warm to touch, outlined in marker, has not gotten bigger Psych: Appearance: grossly normal Mental Status: mental status grossly normal Speech and movement: Normal speech and movement present Affect: normal affect Attitude: cooperative Thought process: Normal thought process present Insight: Good insight present (Psych) Judgement: Good judgement present (Psych) Objective Data Vital Signs Vital Signs: Vital Signs - 24 hr 05/14/25 13:59 05/14/25 19:30 05/14/25 22:00 Temperature 98.0 F 98.3 F Pulse Rate 92 80 80 Respiratory Rate 14 18 18 Blood Pressure 126/72 128/73 Pulse Oximetry 98 98 98 Oxygen Delivery Room Air 05/15/25 04:18 05/15/25 08:54 Temperature 97.6 F Pulse Rate 73 Respiratory Rate 18 Blood Pressure 146/64 H Pulse Oximetry 97 Oxygen Delivery Room Air Intake/Output Intake/Output: Intake & Output 05/12/25 05/13/25 05/14/25 05/15/25 23:59 23:59 23:59 23:59 Intake Total 2680 2380 1265 720 Output Total 1500 600 Balance 1180 1780 1265 720 Meds/Results Medications: Active Medications Generic Name Dose Route Start Last Admin Trade Name Freq PRN Reason Stop Dose Admin Acetaminophen 650 mg 05/11/25 22:54 05/15/25 04:21 Acetaminophen 325 Mg Tablet PO 650 mg Q4H PRN Administration Mild Pain (1-3) or Fever Artificial Tears 1 drop 05/14/25 22:24 Artificial Tears Ophth Soln 15 Ml Bottle EACH EYE QID PRN Dry Eye(s) Diphenhydramine HCl 25 mg 05/12/25 10:11 05/15/25 04:21 Diphenhydramine Hcl Cap 25 Mg Capsule PO 25 mg Q6H PRN Administration Itching Gabapentin 300 mg 05/12/25 05:46 05/14/25 18:04 Gabapentin 300 Mg Capsule PO 300 mg TID PRN Administration Pain Levofloxacin/Dextrose 750 mg in 150 mls @ 100 mls/hr 05/13/25 14:00 05/14/25 17:15 Levaquin 750 Mg/D5w 150 Ml IVPB Infused Q24H MORGAN Infusion Daptomycin 400 mg/ Sodium 50 mls @ 100 mls/hr 05/13/25 15:00 05/14/25 18:30 Chloride IVPB Infused Q24H MORGAN Infusion Morphine Sulfate 2 mg 05/11/25 22:54 05/13/25 01:20 Morphine Sulfate (*Crx) 4 Mg/Ml Inj IV PUSH 2 mg Q2H PRN Administration Pain Rated 7-10 Ondansetron HCl 4 mg 05/11/25 22:54 Ondansetron Inj 4 Mg/2 Ml Vial IV PUSH Q4H PRN Nausea Phenol 1 spray 05/12/25 02:39 05/13/25 21:06 Phenol/Sod Pheno [place] (*Bkc) MUCOUS MEM 1 spray Q4H PRN Administration Sore Throat Potassium Chloride 40 meq 05/15/25 09:40 05/15/25 11:20 Potassium Chloride 20 Meq Packet (For Liquid) PO 40 meq DAILY MORGAN Administration Triamcinolone Acetonide 1 applic 05/14/25 18:31 Triamcinolone Acet 0.1% Cream 15 Gm Tube TOPICAL Q12HR PRN rash/ ithcing Radiology Results: ITS Impressions Chest X-Ray 05/12/25 08:50 IMPRESSION: 1. No acute cardiopulmonary findings given portable technique. Consider PA and lateral films with deep inspiration. Venous Doppler Study 05/12/25 10:09 IMPRESSION: 1. No right leg DVT. 2. Large fluid collection along medial knee. Labs Labs: Laboratory Results - last 24 hr 05/15/25 05:32 WBC 4.6 RBC 4.12 L Hgb 12.4 Hct 37.5 MCV 91.0 MCH 30.1 MCHC 33.1 RDW 13.2 Plt Count 183 MPV 9.0 Immature Gran % (Auto) 0.7 H Neut % (Auto) 40.0 L Lymph % (Auto) 34.7 [place] % (Auto) 15.8 H Eos % (Auto) 7.9 H Baso % (Auto) 0.9 Lymph # (Auto) 1.58 [place] # (Auto) 0.7 H Eos # (Auto) 0.4 H Baso # (Auto) 0.0 Abs Immat Gran (auto) 0.03 Absolute Neuts (auto) 1.8 Absolute Nucleated RBC 0.000 Nucleated RBC % 0.0 Sodium 136 L Potassium 3.3 L Chloride 107 Carbon Dioxide 25 Anion Gap 4 BUN 9 Creatinine 0.64 L Estim Creat Clear Calc 61 Estimated GFR > 60 Glucose 109 Calcium 8.4
[2025-05-15] MEDS: levoFLOXacin 750 MG/D5W 150 ML 750 MG/150 ML BAG 100 MG IVPB (13:24)
[2025-05-15 14:00] VITALS: BP 127/68; PULSE 84; RESP 14; TEMP 36.4; O2SAT 99
[2025-05-15] MEDS: GABAPENTIN 300 MG CAPSULE PO (15:10)
[2025-05-15] MEDS: ARTIFICIAL TEARS OPHTH SOLN 15 ML BOTTLE 1 DROP EACH EYE (19:55)
[2025-05-15 21:03] VITALS: BP 118/55; PULSE 75; RESP 16; TEMP 36.9; O2SAT 98
[2025-05-16 04:06] VITALS: BP 122/68; PULSE 83; RESP 18; TEMP 36.5; O2SAT 98
[2025-05-16 05:39] LABS: Hematocrit 37.3 % (37.0-47.0); Hemoglobin 12.2 g/dL (12.0-15.0); Immature Granulocyte Percent A 1.2 % (0-0.5); Lymphocytes Absolute Auto 1.87 K/mm3 (0.9-3.2); Mean Corpuscular HGB Conc 32.7 g/dl (32-36); Mean Corpuscular Hemoglobin 29.9 pg (26-34); Mean Corpuscular Volume 91.4 fl (80-100); Nucleated Red Blood Cells Absolute Auto 0.000 K/mm3 (0.0-0.012); Nucleated Red Blood Cells Perc 0.0 % (0.0-0.2); Platelet Count Result 208 k/mm3 (150-375); Red Blood Count 4.08 M/mm3 (4.2-5.4); White Blood Count 5.0 K/mm3 (4.5-10.0)
[2025-05-16 06:02] LABS: Anion Gap 2 mmol/L (4-12); Blood Urea Nitrogen 9 mg/dL (7-17); Calcium 8.4 mg/dL (8.4-10.2); Carbon Dioxide 28 mmol/L (22-30); Chloride 107 mmol/L (98-107); Estimated CRCL calculation 55 ml/min; Estimated Glomerular Filt Rate > 60; Glucose 118 mg/dL (65-110); Potassium 3.4 mmol/L (3.4-5.0); Sodium 137 mmol/L (137-145)
[2025-05-16] MEDS: POTASSIUM CHLORIDE 20 MEQ PACKET (FOR LIQUID) 40 MEQ PO (08:29)
--- NOTE | 2025-05-16 08:35 | PM.DS ---
DS: Admitting Diagnosis Discharge Date 05/16 Admitting Diagnosis fever, cellulitis DS: Discharge Diagnosis Discharge Diagnosis (1) Sepsis: Code(s): A41.9 - Sepsis, unspecified organism Status: Acute (2) Neuropathy: Code(s): G62.9 - Polyneuropathy, unspecified Status: Acute (3) Cellulitis: Code(s): L03.90 - Cellulitis, unspecified Status: Acute (4) Pruritic rash: Code(s): L28.2 - Other prurigo Status: Acute DS: Summary Hospital Course Hospital Course: This is an 84-year-old female patient who came to the Emergency Room with a nonproductive cough, fever, rash to her chest and right leg with redness and swelling to her right lower extremity. Approximately 1 week ago her dog scratched her lower extremity and she was using topical antibiotic at the time. Otherwise she is typically healthy. The patient activated the EMS and while in route to the hospital the patient was noted to have several bouts of ventricular bigeminy with palpable heart rate in the 50s. The patient stated that from time to time she has had an irregular heartbeat. Her T-max was 101.8?. Her white count was noted to be 12.0. Her C reactive protein is 1.4. She was negative for viral panel. Group a strep was negative as well. The patient was given 3 L boluses IV fluids, doxycycline, and Flagyl in the emergency room. Chest x-ray was performed but not read by radiologist at this time. She has multiple allergies. She was admitted to observation status on the date of service of 05/12/2025. # Sepsis: Resolved. -the patient had tachycardia with multiple bigeminy be and her heart rate improved with IV fluids. -she was febrile with a T-max of 101.8, WDL after x1 dose of acetaminophen -BC pending -CXR NAD -she possibly have obtained pasteurella multocida from the dog scratch. Therefore she was started on doxycycline. She has multiple allergies. Vancomycin would be resistant to this microorganism. -ID following -WBC continues to be WDL -she also was tachycardic. Her heart rate improved with IV fluids. Continue with maintenance IV fluids. bc prelim negative RESOLVED # Neuropathy -continue with gabapentin # Cellulitis: LLE with erythema & swelling. Hx dog scratch to the area approx x1 week ago -Venous Doppler US no DVT -she possibly have obtained pasteurella multocida from the dog scratch. Therefore she was started on doxycycline. She has multiple allergies. Vancomycin would be resistant to this microorganism. -ID following with recs: -change abx to daptomycin and levaquin ID was following: ok to discharge in am on levaquin 750 mg po daily and clindamycin 300 mg po TID, both x 7 days Status at Discharge Functional status at discharge: independent ambulation Overall status at discharge: patient is progressing back to baseline Time Spent with Patient Time attestation: Total time spent providing and/or coordinating discharge services: Time spent: Greater than 30 minutes Exam Const: General: cooperative, comfortable and no acute distress Orientation/consciousness: oriented to person, oriented to place, oriented to time and patient oriented x3 Limitations: no limitations HENMT: Head: normal to inspection and No palpable skull fracture present Mouth: Yes moist mucous membranes Eyes: General: appearance normal, both eyes and all related structures Neck: Neck: normal visual inspection Carotids: no bruits Chest: Chest palpation & inspection: normal inspection of the chest Resp: Effort & Inspection: normal respiratory effort Auscultation: clear to auscultation bilaterally Cardio: Palpation: normal PMI Rate: regular rate Rhythm: regular rhythm and abnormal rhythm Other: Occasional skipped beat GI: Inspection: normal to inspection and non-distended Auscultation: normal bowel sounds : General: Yes bladder normal to palpation and Yes no CVA tenderness Bimanual exam- vagina & uterus: bladder normal to palpation Back/Spine/Pelvis: Back: no CVA tenderness Cervical Spine: cervical ROM normal Skin: Rashes: rashes noted Other: Papular rash to her chest, right upper extremity, and full back- improved Neuro: General: oriented to person, oriented to place, oriented to time and patient oriented x3 Cranial nerves: Yes Equal, round and reactive pupils present and Yes Normal hearing present Cognition (Neuro): normal cognition Speech: normal speech Motor exam (neuro): 5/5 motor strength present throughout and Normal motor muscle tone present throughout Sensory Exam: normal sensation Extrem: General: normal to inspection Right upper extremity: normal to inspection Left upper extremity: normal to inspection Left lower extremity: normal to inspection Psych: Appearance: grossly normal Mental Status: mental status grossly normal Speech and movement: Normal speech and movement present Affect: normal affect Attitude: cooperative Thought process: Normal thought process present Insight: Good insight present (Psych) Judgement: Good judgement present (Psych) DS: Data Data Completed and Pending Completed studies during hospitalization: chest xray, venous doppler Labs on day of discharge: Labs from last 24 hours 05/16/25 05:19 WBC 5.0 RBC 4.08 L Hgb 12.2 Hct 37.3 MCV 91.4 MCH 29.9 MCHC 32.7 RDW 13.3 Plt Count 208 MPV 9.2 Immature Gran % (Auto) 1.2 H Neut % (Auto) 41.1 L Lymph % (Auto) 37.1 [place] % (Auto) 12.5 H Eos % (Auto) 7.5 H Baso % (Auto) 0.6 Lymph # (Auto) 1.87 [place] # (Auto) 0.6 Eos # (Auto) 0.4 H Baso # (Auto) 0.0 Abs Immat Gran (auto) 0.06 H Absolute Neuts (auto) 2.1 Absolute Nucleated RBC 0.000 Nucleated RBC % 0.0 Sodium 137 Potassium 3.4 Chloride 107 Carbon Dioxide 28 Anion Gap 2 L BUN 9 Creatinine 0.71 Estim Creat Clear Calc 55 Estimated GFR > 60 Glucose 118 H Calcium 8.4 Preliminary micro results at discharge 05/11/25 21:53 Blood Culture - Preliminary Blood 05/11/25 21:53 Blood Culture - Preliminary Blood Discharge Plan Discharge Attending physician on discharge: Julian Nguyễn Consulting providers: Desi Wheeler; Joe Jeffrey Discharging Clinician: Zoraida Bocanegra Patient Disposition: Home Activity: may shower and as tolerated Diet: heart healthy Discharge Instructions: 1. Continue to take the rest of your antibiotics until they are gone, take this medication with food so you do not become nauseous. levaquin 750 mg daily and clindamycin 300 mg three times a day, both x 7 days Continue to check your blood pressure and blood sugar at home if applicable. Keep your scheduled appts with your primary care provider and any specialist that you may see. Return to the emergency department if you develop sudden shortness of breath, chest pain, a fever of greater than 101.5, or nausea, vomiting, abd pain, or diarrhea that does not go away. Follow-up with your primary care provider within 1-2 weeks, they will want to be updated on your inpatient stay in the hospital. Thank you for choosing [facility] for your healthcare needs. Patient Instructions: Antibiotic Form Patient Language: [place] Stand Alone Forms: General Discharge Information Follow-up/Referrals: Baldomero Asif MD [Primary Care Provider, Family Practice] - 2 Weeks Discharge Medications: New levofloxacin 750 mg tablet 750 mg PO DAILY Qty: 7 0RF clindamycin HCl [Cleocin HCl] 300 mg capsule 300 mg PO TID Qty: 21 0RF Rx Instructions: total 7 days Continued gabapentin 300 mg capsule 300 mg PO TID PRN (Reason: pain) triamcinolone acetonide 0.1 % cream 1 applic topical QID Qty: 80 1RF Date of admission: 05/12/25 07:25 Primary Care Provider: Baldomero Asif Admitting Provider: Merissa Arvizu Attending physician on admission: Merissa Arvizu Condition: Stable Quality VTE Prophylaxis VTE prophylaxis: mechanical ordered Hospitalist MIPS Heart Failure (Exclusion) Patient has history of Heart Transplant or Left Ventricular Assistive Device?: No IF YES, STOP HERE Heart Failure (Qualifier) Patient has current or prior documentation of LVEF less than or equal to 40%, or mod/servere depressed LVSF?: No IF NO, STOP HERE
== END 2025-05-16 13:50 | disposition home or self-care (01) | DRG 872 ==
LOC: ANHED 22:50 → ANH3MED 23:52
PROVIDERS: Internal Medicine Infectious Disease; Nurse Practitioner; Admitting Provider Internal Medicine; Emergency Provider Student in an Organized Health Care Education/Training Program; PCP Family Medicine; Visit Provider Nurse Practitioner
DX: A41.9 Sepsis, unspecified organism (principal); L03.115 Cellulitis of right lower limb; S80.811A Abrasion, right lower leg, initial encounter; W54.8XXA Other contact with dog, initial encounter; L28.2 Other prurigo; G62.9 Polyneuropathy, unspecified; R00.8 Other abnormalities of heart beat; E66.9 Obesity, unspecified; Z68.31 Body mass index [BMI] 31.0-31.9, adult; Z20.822 Contact with and (suspected) exposure to COVID-19
CPT/HCPCS: 36415; 71045; 80048; 80053; 81003; 82550; 83605; 85025; 85027; 85610; 85730; 86140; 87040; 87637; 87651; 93005; 93971; 99285; A9270; G0378; J0878; J1836; J1956; J2270; J3373; J7120